=== PATIENT | male | born 1975 | race Two or more races ===

== ENCOUNTER 2020-07-11 19:19 | Inpatient (IN) | payer MEDICAID ==
[~2020-07-11] VITALS: Ht 167.6 cm; Wt 85.3 kg
--- NOTE | 2020-07-11 20:02 | Emergency Room Report ---
History of Present Illness General Chief Complaint: abdominal pain Source: Patient Present Illness HPI Patient is a 44-year-old male presents for increased abdominal discomfort and abdominal distention. Prior history of recent trauma to his forehead. Patient states he was accidentally struck by metal object 2 days ago. Reports having small injury to the left side of his forehead which subsequently became more swollen to the rest of his face. Reports having increased abdominal discomfort as well as nausea and vomiting. Some increased diarrheal stool with black stool. Patient reports drinking alcohol 2 days a week. Denies any fever. Allergies: Coded Allergies: No Known Allergies (Unverified , 07/11/20) Patient History Past Medical History: see triage record Reviewed Nursing Documentation: PMH: Agreed; PSxH: Agreed Review of Systems Gastrointestinal: Reports: abdominal pain, diarrhea Neurological: Reports: headache All Other Systems: negative except mentioned in HPI Physical Exam Sp02 EP Interpretation: reviewed, normal General Appearance: normal inspection, alert, GCS 15, moderate distress Head: atraumatic ENT: normal ENT inspection, hearing grossly normal, normal voice Neck: normal inspection, full range of motion, supple, no bony tend Respiratory: normal inspection, lungs clear, normal breath sounds, no respiratory distress, no retraction, no wheezing Cardiovascular #1: regular rate, rhythm, no edema Gastrointestinal: soft, no guarding, no hernia, distended Genitourinary: no CVA tenderness Musculoskeletal: normal inspection, back normal, normal range of motion Neurologic: alert, motor strength/tone normal, aerodynamic consultant III-XII nml as tested, oriented x3, responsive, speech normal, normal inspection Psychiatric: normal inspection, judgement/insight normal, mood/affect normal Medical Decision Making Diagnostic Impression: Primary Impression: Acute perforated appendicitis Additional Impressions: Facial contusion Dehydration Nasal fracture Hyperbilirubinemia ER Course Patient presents for increased abdominal pain. Additionally has recent head trauma. Differential diagnosis included was not limited to intracranial hemorrhage, skull fracture, GI bleed, gastroenteritis among others. Because of complexity of patient's case laboratory tests and imaging studies were ordered.Patient laboratory testing was normal for elevated white blood count as well as elevated bilirubin level. Liver function tests are otherwise normal. CT imaging read by radiology showed right lower abdominal free air as well as multiple areas of distended bowel with fluid. Per radiology reading patient has likely perforated appendicitis. He was started on pain medications as well as IV antibiotics. Patient was discussed with Dr. Joya for surgical consult Dr. Toth was contacted for inpatient management due to panel physician. Labs Test 07/11/20 20:09 White Blood Count 20.3 K/UL (4.8-10.8) Red Blood Count 5.63 M/UL (4.70-6.10) Hemoglobin 17.5 G/DL (14.2-18.0) Hematocrit 49.8 % (42.0-52.0) Mean Corpuscular Volume 88 FL (80-99) Mean Corpuscular Hemoglobin 31.1 PG (27.0-31.0) Mean Corpuscular Hemoglobin Concent 35.1 G/DL (32.0-36.0) Red Cell Distribution Width 12.6 % (11.6-14.8) Platelet Count 200 K/UL (150-450) Mean Platelet Volume 7.6 FL (6.5-10.1) Neutrophils (%) (Auto) % (45.0-75.0) Lymphocytes (%) (Auto) % (20.0-45.0) Monocytes (%) (Auto) % (1.0-10.0) Eosinophils (%) (Auto) % (0.0-3.0) Basophils (%) (Auto) % (0.0-2.0) Prothrombin Time 12.5 SEC (9.30-11.50) Prothromb Time International Ratio 1.1 (0.9-1.1) Activated Partial Thromboplast Time 30 SEC (23-33) Sodium Level 136 MMOL/L (136-145) Potassium Level 3.5 MMOL/L (3.5-5.1) Chloride Level 96 MMOL/L (98-107) Carbon Dioxide Level 25 MMOL/L (21-32) Anion Gap 15 mmol/L (5-15) Blood Urea Nitrogen 14 mg/dL (7-18) Creatinine 1.4 MG/DL (0.55-1.30) Estimat Glomerular Filtration Rate 55.3 mL/min (>60) Glucose Level 142 MG/DL (74-106) Calcium Level 9.0 MG/DL (8.5-10.1) Total Bilirubin 3.2 MG/DL (0.2-1.0) Direct Bilirubin 0.5 MG/DL (0.0-0.3) Aspartate Amino Transf (AST/SGOT) 19 U/L (15-37) Alanine Aminotransferase (ALT/SGPT) 33 U/L (12-78) Alkaline Phosphatase 88 U/L (46-116) Total Protein 8.7 G/DL (6.4-8.2) Albumin 3.7 G/DL (3.4-5.0) Globulin 5.0 g/dL Albumin/Globulin Ratio 0.7 (1.0-2.7) Lipase 55 U/L (73-393) Status: improved Disposition: ADMITTED INPATIENT Condition: Serious Scripts No Active Prescriptions or Reported Meds Khris Rosenberg MD Jul 11, 2020 20:02
[2020-07-11 20:19] VITALS: BP 141/109
--- NOTE | 2020-07-11 20:24 | NUR ---
ED Nurse Note: Pt brought back to ED via wheelchair. AAO x4. Pt speaks barbadian, sister present, and Nay from registration present to translate. Pt reports he was working x3 days ago and dropped something metal on his face. Pt has bilateral black eyes, pt denies LOC, reports he did not get seen by doctor. Pt reports nausea, vomiting, diarrhea x2 days with lower abdominal pain. Pt has been placed on monitor, IV started, blood and stool sent to lab.
[2020-07-11 20:36] LABS: HEMATOCRIT 49.8 % (42.0-52.0); HEMOGLOBIN 17.5 G/DL (14.2-18.0); MEAN CORPUSCULAR VOLUME 88 FL (80-99); PLATELET COUNT 200 K/UL (150-450); RED BLOOD COUNT 5.63 M/UL (4.70-6.10); RED CELL DISTRIBUTION WIDTH 12.6 % (11.6-14.8); WHITE BLOOD COUNT 20.3 K/UL (4.8-10.8)
[2020-07-11 20:44] LABS: CREATININE 1.4 MG/DL (0.55-1.30); POTASSIUM 3.5 MMOL/L (3.5-5.1)
--- NOTE | 2020-07-11 20:45 | NUR ---
ED Nurse Note: Pt to CT.
[2020-07-11 20:46] LABS: INR 1.1 (0.9-1.1)
[2020-07-11 20:55] LABS: ALBUMIN 3.7 G/DL (3.4-5.0); ALBUMIN/GLOBULIN RATIO 0.7 (1.0-2.7); BILIRUBIN,DIRECT 0.5 MG/DL (0.0-0.3); BILIRUBIN,TOTAL 3.2 MG/DL (0.2-1.0)
--- NOTE | 2020-07-11 21:05 | NUR ---
ED Nurse Note: Pt returned from CT. IV fluids started.
[2020-07-11 21:09] VITALS: BP 161/98
--- NOTE | 2020-07-11 21:10 | Diagnostic Imaging Report ---
EXAM: CT Head Without Intravenous Contrast CLINICAL HISTORY: ABD PAIN TECHNIQUE: Axial computed tomography images of the head/brain without intravenous contrast. CTDI is 68.7 mGy and DLP is 1388.5 mGy-cm. One or more of the following dose reduction techniques were used: automated exposure control, adjustment of the mA and/or kV according to patient size, use of iterative reconstruction technique. COMPARISON: No relevant prior studies available. FINDINGS: Brain: Unremarkable. No hemorrhage. No significant white matter disease. No edema. Ventricles: Unremarkable. No ventriculomegaly. Bones/joints: Unremarkable. No acute fracture. Soft tissues: Left frontal scalp and periorbital hematoma. Sinuses: Unremarkable as visualized. No acute sinusitis. Mastoid air cells: Unremarkable as visualized. No mastoid effusion. Orbits: Intact partly seen globes, unremarkable orbits. IMPRESSION: 1. No acute intracranial abnormality. 2. Left frontal scalp and periorbital hematoma. 3. Intact partly seen globes, unremarkable orbits.
--- NOTE | 2020-07-11 21:18 | Diagnostic Imaging Report ---
EXAM: CT Maxillofacial Without Intravenous Contrast CLINICAL HISTORY: ABD PAIN TECHNIQUE: Axial computed tomography images of the face without intravenous contrast. CTDI is 68.7 mGy and DLP is 1388.5 mGy-cm. One or more of the following dose reduction techniques were used: automated exposure control, adjustment of the mA and/or kV according to patient size, use of iterative reconstruction technique. Coronal reformatted images were created and reviewed. Axial reformatted images were created and reviewed. COMPARISON: No relevant prior studies available. FINDINGS: Bones/joints: Possible miniscule nasal bone fractures without significant displacement. Otherwise no acute osseous traumatic injury. Soft tissues: Left frontal scalp and left periorbital hematoma. Mild left facial soft tissue contusion. Orbits: Intact globes, unremarkable orbits. Sinuses: Unremarkable. No air-fluid levels. Brain: For intracranial findings, please see dedicated CT head report from the same date. IMPRESSION: 1. For intracranial findings, please see dedicated CT head report from the same date. 2. Possible miniscule nasal bone fractures without significant displacement. 3. Otherwise no acute osseous traumatic injury. 4. Left frontal scalp and left periorbital hematoma. 5. Intact globes, unremarkable orbits. 6. Mild left facial soft tissue contusion.
--- NOTE | 2020-07-11 21:30 | Diagnostic Imaging Report ---
EXAM: CT Abdomen and Pelvis With Intravenous Contrast CLINICAL HISTORY: ABD PAIN TECHNIQUE: Axial computed tomography images of the abdomen and pelvis with intravenous contrast. CTDI is 9.1 mGy and DLP is 507.7 mGy-cm. One or more of the following dose reduction techniques were used: automated exposure control, adjustment of the mA and/or kV according to patient size, use of iterative reconstruction technique. Coronal and sagittal reformatted images were created and reviewed. COMPARISON: No relevant prior studies available. FINDINGS: Lung bases: Unremarkable. No mass. No consolidation. Pleural space: Small thin left pleural calcifications could be due to prior exudative right pleural process. ABDOMEN: Liver: Unremarkable. No mass. Gallbladder and bile ducts: Unremarkable. No calcified stones. No ductal dilation. Pancreas: Unremarkable. No mass. No ductal dilation. Spleen: Unremarkable. No splenomegaly. Adrenals: Unremarkable. No mass. Kidneys and ureters: Unremarkable. No solid mass. No hydronephrosis. Stomach and bowel: Long segment distal ileum relative wall thickening and hyperenhancement with luminal caliber narrowing could be incidental or could represent infectious or inflammatory enteritis. Transverse colon wall thickening, most pronounced from the hepatic flexure to the mid transverse colon. Extensive liquid small and large bowel contents could be incidental or could be seen with enterocolitis. PELVIS: Appendix: Probable perforated acute appendicitis with scattered right lower quadrant free air, appendiceal thickening and periappendiceal stranding, and nonloculated. Small fluid collection. Appendix 1.1 cm diameter. Bladder: Unremarkable. No mass. Reproductive: Prostatomegaly 5.3 cm TV. ABDOMEN and PELVIS: Intraperitoneal space: See above. Bones/joints: No acute fracture. No dislocation. Soft tissues: Unremarkable. Vasculature: Atherosclerotic vascular disease. No abdominal aortic aneurysm. Lymph nodes: Unremarkable. No enlarged lymph nodes. IMPRESSION: 1. Probable perforated acute appendicitis with scattered right lower quadrant free air, appendiceal thickening and periappendiceal stranding, and nonloculated. Small fluid collection. 2. Recommend surgical consultation. 3. Multifocal segmental small and large bowel findings above could represent infectious or inflammatory enterocolitis. Given appearance, consider inflammatory bowel disease. 4. Small thin left pleural calcifications could be due to prior exudative right pleural process. 5. Prostatomegaly 5.3 cm TV. <MYCVCSECTION> Communications: 07/11/20 21:43 Call Doctor Regarding Appendicitis, called Chet JOY on 07/11 21:47 (-08:00)
[2020-07-11] MEDS ORDERED: Piperacillin/Tazobactam 3.375 GM in NS 110 ML IVPB ONE (21:45)
[2020-07-11] MEDS ORDERED: Morphine Sulfate 4mg/ml Inj (IV USE ONLY) IVP ONE ×2 (21:45→23:15)
[2020-07-11] MEDS: LR 1000ml 1,000 ML IV SCH (22:06)
[2020-07-11 22:22] VITALS: BP 129/89
--- NOTE | 2020-07-11 22:23 | NUR ---
ED Nurse Note: Pt is resting, warm blanket provided. No other needs identified at this time.
--- NOTE | 2020-07-11 23:05 | Diagnostic Imaging Report ---
EXAM: XR Chest, 1 View CLINICAL HISTORY: PREOP TECHNIQUE: Frontal view of the chest. COMPARISON: Same-day CT abdomen and pelvis FINDINGS: Lungs: Low lung volumes with bronchovascular crowding. Right base ill- defined lateral opacity probably represent atelectasis, correlate with presentation to exclude consolidation. Pleural space: Unremarkable. No pneumothorax. Heart: Prominent cardiac mediastinal silhouette, likely due at least in part to low lung volumes and portable technique. Mediastinum: See above. Bones/joints: No acute abnormality IMPRESSION: 1. Low lung volumes with bronchovascular crowding. 2. Right base ill-defined lateral opacity probably represent atelectasis, correlate with presentation to exclude consolidation. 3. Prominent cardiac mediastinal silhouette, likely due at least in part to low lung volumes and portable technique.
--- NOTE | 2020-07-11 23:24 | NUR ---
TRANSFER TO FLOOR: Patient transferred to [facility] as ordered, per Dr. Rosenberg. Report given to JB Willis. Belongings sent to floor with pt except wallet, gonzales and keys sent with pt's sister. This is documented on belongings inventory. Family informed of transfer.
[2020-07-12] VITALS: BP 148/100
[2020-07-12 04:00] VITALS: BP 153/95
[2020-07-12] MEDS: LR 1000ml 1,000 ML IV SCH (04:20)
--- NOTE | 2020-07-12 06:23 | NUR ---
NURSE HAND-OFF: Important Events on Shift: none since time of admission; awaiting admission orders from PMD Patient Status: asleep; stable at this time Diet: kept NPO; awaiting diet orders Pending Orders: waiting for orders Pending Results/Labs: waiting for orders Pending MD notification: Latest Vital Signs: Temperature 98.9 , Pulse 77 , B/P 153 /95 , Respiratory Rate 20 , O2 SAT 98 , Room Air, O2 Flow Rate . Vital Sign Comment:stable Latest Kennedy Fall Score: 45 Fall Risk: High Risk Safety Measures: Call light Within Reach, Bed Alarm Zone 3, Side Rails Side Rails x2, Bed position Low and Locked. Fall Precautions: Patient Fall Education Report will be given to JB Patrick.
--- NOTE | 2020-07-12 06:39 | NUR ---
NURSE'S NOTES: admitting orders received and entered. awaiting for code status, in-patient/observation and dvt prophylaxis orders.
[2020-07-12] MEDS ORDERED: Morphine Sulfate 2mg/ml Inj(IV/IM USE ONLY) IVP PRN (06:45)
--- NOTE | 2020-07-12 07:58 | NUR ---
NURSE NOTES: Received pt from JB Willis. pt was sleeping, no acute distress, call light w/in reach
[2020-07-12 08:00] VITALS: BP 146/74
[2020-07-12] MEDS: Piperacillin/Tazobactam 3.375 GM in NS 110 ML IVPB SCH ×3 (08:40→23:24)
--- NOTE | 2020-07-12 09:19 | NUR ---
CASE MANAGEMENT:REVIEW 44 YR OLD MALE WALKED INTO ER CC: ABDOMINAL PAIN,NAUSEA AND 40 EMESIS PMH: 2 BLACK EYES FROM METAL DROPPING ON FACE AT WORK 3 DAYS AGO SI:PROBABLE ACUTE PERFORATED APPENDICITIS NASAL FRACTURE. FACIAL CONTUSION 98.3 139 30 141/109 96% ON RA WBC+20.3 IS: 1L NS BOLUS IV ZOSYN IV MORPHINE OV ZOFRAN 1L LR X1 CHEST XRAY CT HEAD/FACIAL BONES/ABDOMEN NPO : TO MED/SURG 4 EAST PLAN: SURGICAL CONSULT
--- NOTE | 2020-07-12 10:12 | Consultation ---
History of Present Illness General Date patient seen: Jul 12, 2020 Reason for Hospitalization: Abdominal Pain Present Illness HPI 44-year-old male presents with 3 days abdominal pain nausea no emesis passing flatus having bowel movements. Identified to have leukocytosis and CT consi stent with perforated appendicitis no abscess. Surgery called to evaluate assist with care patient seen patient value chart reviewed. Allergies: Coded Allergies: No Known Allergies (Unverified , 07/11/20) COVID-19 Screening Contact w/high risk pt: No Experienced COVID-19 symptoms?: No Medication History No Active Prescriptions or Reported Meds Patient History History Provided By: Patient Healthcare decision maker Resuscitation status Advanced Directive on File Past Medical/Surgical History Past Medical/Surgical History: (1) Dehydration (2) Hyperbilirubinemia (3) Nasal fracture (4) Facial contusion (5) Acute perforated appendicitis Review of Systems Review of Symptoms General ROS: no weight loss or fever Psychological ROS: no depression or mood changes, no memory loss Ophthalmic ROS: no visual changes or eye irritation ENT ROS: no nasal congestion, hearing loss, dizziness Allergy and Immunology ROS: no allergic symptoms or urticaria Hematological and Lymphatic ROS: no swollen glands, unusual bleeding or bruising Endocrine ROS: no polyuria, polydipsia, weight changes, temperature intolerance Respiratory ROS: no cough, shortness of breath, or wheezing Cardiovascular ROS: no chest pain or dyspnea on exertion Gastrointestinal ROS: Positive abdominal pain, bright red blood in stool. Musculoskeletal ROS: no myalgias or arthralgias Neurological ROS: no TIA or stroke symptoms Dermatological ROS: no new or changing skin lesions, rashes or pruritis Physical Exam Physical Exam General appearance: alert, cooperative, no distress, appears stated age Head: Normocephalic, without obvious abnormality, atraumatic Eyes: conjunctivae/corneas clear. PERRL, EOM's intact. Fundi benign Throat: Lips, mucosa, and tongue normal. Teeth and gums normal Neck: supple, symmetrical, trachea midline, no adenopathy, thyroid: not enlarged, symmetric, no tenderness/mass/nodules, no carotid bruit and no JVD Lungs: clear to auscultation bilaterally Heart: regular rate and rhythm, S1, S2 normal, no murmur, click, rub or gallop Abdomen: soft, moderate right lower quadrant-tender. Bowel sounds normal. No masses, no organomegaly mild distention no peritonitis Extremities: extremities normal, atraumatic, no cyanosis or edema Pulses: 2+ and symmetric Skin: Skin color, texture, turgor normal. No rashes or lesions Neurologic: Grossly normal Last 24 Hour Vital Signs Date Time Temp Pulse Resp B/P (MAP) Pulse Ox O2 Delivery O2 Flow Rate FiO2 07/12/20 08:07 Room Air 07/12/20 04:00 98.9 77 20 153/95 (114) 98 07/12/20 00:00 97.9 104 22 148/100 (116) 92 07/11/20 23:30 Room Air 07/11/20 23:05 98.6 106 29 140/90 95 Room Air 07/11/20 22:22 98.6 111 26 129/89 95 Room Air 07/11/20 21:09 98.6 116 33 161/98 95 Room Air 07/11/20 20:19 119 36 Room Air 07/11/20 20:19 98.2 120 34 141/109 97 Room Air 07/11/20 19:56 98.2 139 30 141/109 (120) 96 Room Air Intake and Output 07/11/20 07/12/20 19:00 07:00 Intake Total 200.00 ml Output Total 400 ml Balance -200.00 ml Intake IV Total 200.00 ml Output Urine Total 400 ml Laboratory Tests Test 07/11/20 20:09 White Blood Count 20.3 K/UL (4.8-10.8) H Red Blood Count 5.63 M/UL (4.70-6.10) Hemoglobin 17.5 G/DL (14.2-18.0) Hematocrit 49.8 % (42.0-52.0) Mean Corpuscular Volume 88 FL (80-99) Mean Corpuscular Hemoglobin 31.1 PG (27.0-31.0) H Mean Corpuscular Hemoglobin Concent 35.1 G/DL (32.0-36.0) Red Cell Distribution Width 12.6 % (11.6-14.8) Platelet Count 200 K/UL (150-450) Mean Platelet Volume 7.6 FL (6.5-10.1) Neutrophils (%) (Auto) % (45.0-75.0) Lymphocytes (%) (Auto) % (20.0-45.0) Monocytes (%) (Auto) % (1.0-10.0) Eosinophils (%) (Auto) % (0.0-3.0) Basophils (%) (Auto) % (0.0-2.0) Differential Total Cells Counted 100 Neutrophils % (Manual) 75 % (45-75) Lymphocytes % (Manual) 9 % (20-45) L Monocytes % (Manual) 5 % (1-10) Eosinophils % (Manual) 0 % (0-3) Basophils % (Manual) 1 % (0-2) Band Neutrophils 10 % (0-8) H Platelet Estimate Adequate Platelet Morphology Normal Red Blood Cell Morphology Normal Prothrombin Time 12.5 SEC (9.30-11.50) H Prothromb Time International Ratio 1.1 (0.9-1.1) Activated Partial Thromboplast Time 30 SEC (23-33) Urine Color Pending Urine Appearance Pending Urine pH Pending Urine Specific [place] Pending Urine Protein Pending Urine Glucose (UA) Pending Urine Ketones Pending Urine Blood Pending Urine Nitrite Pending Urine Bilirubin Pending Urine Urobilinogen Pending Urine Leukocyte Esterase Pending Sodium Level 136 MMOL/L (136-145) Potassium Level 3.5 MMOL/L (3.5-5.1) Chloride Level 96 MMOL/L (98-107) L Carbon Dioxide Level 25 MMOL/L (21-32) Anion Gap 15 mmol/L (5-15) Blood Urea Nitrogen 14 mg/dL (7-18) Creatinine 1.4 MG/DL (0.55-1.30) H Estimat Glomerular Filtration Rate 55.3 mL/min (>60) Glucose Level 142 MG/DL (74-106) H Calcium Level 9.0 MG/DL (8.5-10.1) Total Bilirubin 3.2 MG/DL (0.2-1.0) H Direct Bilirubin 0.5 MG/DL (0.0-0.3) H Aspartate Amino Transf (AST/SGOT) 19 U/L (15-37) Alanine Aminotransferase (ALT/SGPT) 33 U/L (12-78) Alkaline Phosphatase 88 U/L (46-116) Total Protein 8.7 G/DL (6.4-8.2) H Albumin 3.7 G/DL (3.4-5.0) Globulin 5.0 g/dL Albumin/Globulin Ratio 0.7 (1.0-2.7) L Lipase 55 U/L (73-393) L Microbiology Date/Time Source Procedure Growth Status 07/11/20 22:04 Nasopharynx SARS-CoV-2 Antigen (Rapid)(BENITA) - Final Complete Height (Feet): 5 Height (Inches): 6.00 Weight (Pounds): 188 Medications Current Medications Medications (Trade) Dose Ordered Sig/Sveta Route PRN Reason Start Time Stop Time Status Last Admin Dose Admin Morphine Sulfate (Morphine Sulfate) 1 mg Q4H PRN IVP For Pain 07/12/20 06:45 07/19/20 06:44 07/12/20 08:38 Ondansetron HCl (Zofran) 4 mg Q6H PRN IVP Nausea & Vomiting 07/12/20 06:45 08/11/20 06:44 Piperacillin Sod/ Tazobactam Sod 3.375 gm/Sodium Chloride 110 ml @ 27.5 mls/hr Q8HR@0000,0800,1600 IVPB 07/12/20 08:00 07/19/20 07:59 07/12/20 08:40 Sodium Chloride 1,000 ml @ 100 mls/hr Q10H IV 07/12/20 07:00 08/11/20 06:59 07/12/20 08:40 Assessment/Plan Problem List: (1) Dehydration ICD Codes: E86.0 - Dehydration SNOMED: 29881427 (2) Hyperbilirubinemia ICD Codes: E80.6 - Other disorders of bilirubin metabolism SNOMED: 08418818 (3) Nasal fracture ICD Codes: S02.2XXA - Fracture of nasal bones, initial encounter for closed fracture SNOMED: 866766403 (4) Facial contusion ICD Codes: S00.83XA - Contusion of other part of head, initial encounter SNOMED: 604675054 (5) Acute perforated appendicitis Assessment & Plan: 44-year-old male acute perforated appendicitis no abscess. Some mild bubbles of free air likely from the perforation. Abdominal exam with right lower quadrant tenderness mild distention no peritonitis. Leukocytosis dehydration. Given above will initiate nonoperative medical management acute perforated appendicitis. If improving will continue with course. Otherwise will need to go to operating room for exploration. Long session had at the patient's bedside in regards to findings and care plan. Patient expressed understanding. N.p.o. IV fluids IV antibiotics trend labs we will follow with examination recommendations thank you for let me participate in patient's care ICD Codes: K35.32 - Acute appendicitis with perforation and localized peritonitis, without abscess SNOMED: 399602257 Celestine Joya Jul 12, 2020 10:12
[2020-07-12] MEDS ORDERED: Mylanta II UD 30ml ORAL PRN (10:15)
[2020-07-12] MEDS ORDERED: LORazepam 1mg tab ORAL PRN (10:15)
[2020-07-12 12:00] VITALS: BP 132/96
[2020-07-12] MEDS: Morphine Sulfate 2mg/ml Inj(IV/IM USE ONLY) IVP PRN (12:48)
[2020-07-12] MEDS ORDERED: LR 1000ml ONE (12:57)
[2020-07-12] MEDS: Morphine Sulfate 4mg/ml Inj (IV USE ONLY) IVP PRN ×2 (15:55→21:08)
[2020-07-12 16:00] VITALS: BP 134/92
--- NOTE | 2020-07-12 19:24 | NUR ---
NURSE HAND-OFF: Important Events on Shift:[N] Patient Status: [] Diet: [] Pending Orders: [] Pending Results/Labs:[] Pending MD notification:[] Latest Vital Signs: Temperature 97.9 , Pulse 107 , B/P 134 /92 , Respiratory Rate 18 , O2 SAT 90 , Room Air, O2 Flow Rate . Vital Sign Comment: [] Latest Kennedy Fall Score: 45 Fall Risk: High Risk Safety Measures: Call light Within Reach, Bed Alarm Zone 3, Side Rails Side Rails x2, Bed position Low and Locked. Fall Precautions: Patient Fall Education Report given to [JB Willis].
--- NOTE | 2020-07-12 19:57 | NUR ---
nurse's notes: received patient alert, oriented x 4. admits to 6/10 right quadrant abdominal pain but refused offer for pain medication. bilateral eyes with bruising; left eyebrow with scab; no s/s of infection. plan of care discussed with patient who verbalized agreement and understanding. will continue to monitor.
[2020-07-12 20:00] VITALS: BP 128/89
[2020-07-12] MEDS: Heparin 5000 units/ml inj SUBQ SCH (21:01)
[2020-07-13 00:01] VITALS: BP 123/96
[2020-07-13] MEDS: Morphine Sulfate 4mg/ml Inj (IV USE ONLY) IVP PRN (03:59)
[2020-07-13 04:00] VITALS: BP 128/94
--- NOTE | 2020-07-13 06:21 | NUR ---
NURSE HAND-OFF: Important Events on Shift: no significant changes noted this shift. pain managed well with ordered IV morphine with good results. tolerating IV abx; no adverse/side effects reported. no falls this shift. stool specimen sent for cultures and OB. bruises around the orbital area more director recreation in color. NPO continued as ordered. stable at this time. Patient Status: stable Diet: see order Pending Orders: see orders Pending Results/Labs: see orders Pending MD notification: see orders Latest Vital Signs: Temperature 98.6 , Pulse 103 , B/P 128 /94 , Respiratory Rate 20 , O2 SAT 97 , Room Air, O2 Flow Rate . Vital Sign Comment: see chart Latest Kennedy Fall Score: 45 Fall Risk: High Risk Safety Measures: Call light Within Reach, Bed Alarm Zone 3, Side Rails Side Rails x2, Bed position Low and Locked. Fall Precautions: Patient Fall Education Report will be given to JB Loyd [].
[2020-07-13 08:00] VITALS: BP 140/90
--- NOTE | 2020-07-13 08:00 | NUR ---
NURSE NOTES: received patient in bed, awake, alert, oriented x 4. Serbian speaking only, this nurse speaks Serbian. Patient is sub febrile and has bilateral eyes with bruising, provided cool wet cloth to mandaen cooling measures and eyes comfort; left eyebrow with scab; no s/s of infection. On room air, no respiratory discomfort noted. Bed locked and in the lowest position possible. Call light within easy reach. Side rails up x3. will continue to monitor patient and follow up with the plan of care.
[2020-07-13] MEDS: Piperacillin/Tazobactam 3.375 GM in NS 110 ML IVPB SCH ×3 (08:23→23:22)
[2020-07-13] MEDS: Heparin 5000 units/ml inj SUBQ SCH ×2 (08:25→21:16)
[2020-07-13 09:34] LABS: BASOPHILS % (AUTO) 0.3 % (0.0-2.0); EOSINOPHILS % (AUTO) 0.5 % (0.0-3.0); HEMATOCRIT 40.1 % (42.0-52.0); HEMOGLOBIN 13.7 G/DL (14.2-18.0); MEAN CORPUSCULAR VOLUME 89 FL (80-99); MONOCYTES % (AUTO) 5.9 % (1.0-10.0); NEUTROPHILS % (AUTO) 82.3 % (45.0-75.0); PLATELET COUNT 162 K/UL (150-450); RED BLOOD COUNT 4.49 M/UL (4.70-6.10); RED CELL DISTRIBUTION WIDTH 11.8 % (11.6-14.8); WHITE BLOOD COUNT 13.8 K/UL (4.8-10.8)
[2020-07-13 09:47] LABS: INR 0.9 (0.9-1.1)
[2020-07-13 10:10] LABS: ALANINE AMINOTRANSFERASE 16 U/L (12-78); ALBUMIN 2.5 G/DL (3.4-5.0); ALBUMIN/GLOBULIN RATIO 0.6 (1.0-2.7); ALKALINE PHOSPHATASE 87 U/L (46-116); AMYLASE 19 U/L (25-115); ANION GAP 9 mmol/L (5-15); ASPARTATE AMINO TRANSFERASE 14 U/L (15-37); BILIRUBIN,TOTAL 1.7 MG/DL (0.2-1.0); BLOOD UREA NITROGEN 12 mg/dL (7-18); CALCIUM 8.3 MG/DL (8.5-10.1); CARBON DIOXIDE 24 MMOL/L (21-32); CHLORIDE 106 MMOL/L (98-107); CREATININE 0.9 MG/DL (0.55-1.30); POTASSIUM 3.5 MMOL/L (3.5-5.1); SODIUM 139 MMOL/L (136-145)
[2020-07-13 10:13] LABS: BILIRUBIN,DIRECT 0.4 MG/DL (0.0-0.3)
[2020-07-13 12:00] VITALS: BP 140/86
--- NOTE | 2020-07-13 12:28 | Surgery Progress Note ---
Surgery Progress Note Subjective Symptoms: improved, voiding well, passing flatus, BM, pain decreased Objective Last 24 Hour Vital Signs Date Time Temp Pulse Resp B/P (MAP) Pulse Ox O2 Delivery O2 Flow Rate FiO2 07/13/20 12:00 99.3 84 18 140/86 (104) 97 07/13/20 09:00 Room Air 07/13/20 08:00 99.2 106 20 140/90 (107) 97 07/13/20 04:00 98.6 103 20 128/94 (105) 97 07/13/20 00:01 98.8 98 18 123/96 (105) 95 07/12/20 21:00 Room Air 07/12/20 20:00 98.8 96 18 128/89 (102) 98 07/12/20 16:00 97.9 107 18 134/92 (106) 90 I&O Intake and Output 07/12/20 07/13/20 19:00 07:00 Intake Total 100 ml 1210.00 ml Output Total 600 ml Balance -500 ml 1210.00 ml Intake IV Total 100 ml 1210.00 ml Output Urine Total 600 ml # Voids 2 # Bowel Movements 1 Cardiovascular: RSR Respiratory: clear Abdomen: soft, flat, tenderness - improved , present bowel sounds Extremities: no edema, no tenderness, no cyanosis Laboratory Tests Test 07/13/20 08:21 White Blood Count 13.8 K/UL (4.8-10.8) H Red Blood Count 4.49 M/UL (4.70-6.10) L Hemoglobin 13.7 G/DL (14.2-18.0) L Hematocrit 40.1 % (42.0-52.0) L Mean Corpuscular Volume 89 FL (80-99) Mean Corpuscular Hemoglobin 30.5 PG (27.0-31.0) Mean Corpuscular Hemoglobin Concent 34.1 G/DL (32.0-36.0) Red Cell Distribution Width 11.8 % (11.6-14.8) Platelet Count 162 K/UL (150-450) Mean Platelet Volume 7.8 FL (6.5-10.1) Neutrophils (%) (Auto) 82.3 % (45.0-75.0) H Lymphocytes (%) (Auto) 11.0 % (20.0-45.0) L Monocytes (%) (Auto) 5.9 % (1.0-10.0) Eosinophils (%) (Auto) 0.5 % (0.0-3.0) Basophils (%) (Auto) 0.3 % (0.0-2.0) Erythrocyte Sedimentation Rate 48 MM/HR (0-15) H Prothrombin Time 10.4 SEC (9.30-11.50) Prothromb Time International Ratio 0.9 (0.9-1.1) Activated Partial Thromboplast Time 35 SEC (23-33) H Sodium Level 139 MMOL/L (136-145) Potassium Level 3.5 MMOL/L (3.5-5.1) Chloride Level 106 MMOL/L (98-107) Carbon Dioxide Level 24 MMOL/L (21-32) Anion Gap 9 mmol/L (5-15) Blood Urea Nitrogen 12 mg/dL (7-18) Creatinine 0.9 MG/DL (0.55-1.30) Estimat Glomerular Filtration Rate > 60 mL/min (>60) Glucose Level 89 MG/DL (74-106) Calcium Level 8.3 MG/DL (8.5-10.1) L Total Bilirubin 1.7 MG/DL (0.2-1.0) H Direct Bilirubin 0.4 MG/DL (0.0-0.3) H Aspartate Amino Transf (AST/SGOT) 14 U/L (15-37) L Alanine Aminotransferase (ALT/SGPT) 16 U/L (12-78) Alkaline Phosphatase 87 U/L (46-116) C-Reactive Protein, Quantitative 43.5 mg/dL (0.00-0.90) H Total Protein 7.0 G/DL (6.4-8.2) Albumin 2.5 G/DL (3.4-5.0) L Globulin 4.5 g/dL Albumin/Globulin Ratio 0.6 (1.0-2.7) L Amylase Level 19 U/L (25-115) L Lipase 50 U/L (73-393) L Plan Problems: (1) Dehydration (2) Hyperbilirubinemia (3) Nasal fracture (4) Facial contusion (5) Acute perforated appendicitis Assessment & Plan: 44-year-old male acute perforated appendicitis no abscess. Some mild bubbles of free air likely from the perforation. Abdominal exam with right lower quadrant tenderness mild distention no peritonitis. Leukocytosis dehydration. Given above will initiate nonoperative medical management acute perforated appendicitis. If improving will continue with course. Otherwise will need to go to operating room for exploration. Long session had at the patient's bedside in regards to findings and care plan. Patient expressed understanding. N.p.o. IV fluids IV antibiotics trend labs we will follow with examination recommendations thank you for let me participate in patient's care improving with medical management npo iv fluids iv abx trend labs Celestine Joya Jul 13, 2020 12:28
[2020-07-13] MEDS ORDERED: NS 275ml ONE (14:24)
[2020-07-13] MEDS ORDERED: Tubing IV Secondary IV ONE (14:24)
[2020-07-13] MEDS: Morphine Sulfate 2mg/ml Inj(IV/IM USE ONLY) IVP PRN (15:57)
[2020-07-13 16:00] VITALS: BP 148/95
--- NOTE | 2020-07-13 19:07 | NUR ---
NURSE HAND-OFF: Important Events on Shift:[] Patient Status: [stable] Diet: [NPO] Pending Orders: [cbc, cmp] Pending Results/Labs:[] Pending MD notification:[] Latest Vital Signs: Temperature 99.3 , Pulse 93 , B/P 148 /95 , Respiratory Rate 18 , O2 SAT 94 , Room Air, O2 Flow Rate . Vital Sign Comment: [] Latest Kennedy Fall Score: 45 Fall Risk: High Risk Safety Measures: Call light Within Reach, Bed Alarm Zone 3, Side Rails Side Rails x2, Bed position Low and Locked. Fall Precautions: Patient Fall Education Report given to [JB Murry].
--- NOTE | 2020-07-13 19:13 | General Progress Note ---
Subjective Date patient seen: Jul 13, 2020 Constitutional: Reports: weakness HEENT: Reports: no symptoms Cardiovascular: Reports: no symptoms Respiratory: Reports: no symptoms Gastrointestinal/Abdominal: Reports: abdomen distended, abdominal pain Allergies: Coded Allergies: No Known Allergies (Unverified , 07/11/20) Subjective awake abdo pain Objective Last 24 Hour Vital Signs Date Time Temp Pulse Resp B/P (MAP) Pulse Ox O2 Delivery O2 Flow Rate FiO2 07/13/20 16:27 99.3 07/13/20 16:00 98.2 93 18 148/95 (112) 94 07/13/20 12:00 99.3 84 18 140/86 (104) 97 07/13/20 09:00 Room Air 07/13/20 08:00 99.2 106 20 140/90 (107) 97 07/13/20 04:00 98.6 103 20 128/94 (105) 97 07/13/20 00:01 98.8 98 18 123/96 (105) 95 07/12/20 21:00 Room Air 07/12/20 20:00 98.8 96 18 128/89 (102) 98 Intake and Output 07/12/20 07/13/20 19:00 07:00 Intake Total 100 ml 1210.00 ml Output Total 600 ml Balance -500 ml 1210.00 ml Intake IV Total 100 ml 1210.00 ml Output Urine Total 600 ml # Voids 2 # Bowel Movements 1 Laboratory Tests 07/13/20 04:30: Stool Occult Blood [Pending] 07/13/20 08:21: White Blood Count 13.8H, Red Blood Count 4.49L, Hemoglobin 13.7L, Hematocrit 40.1L, Mean Corpuscular Volume 89, Mean Corpuscular Hemoglobin 30.5, Mean Corpuscular Hemoglobin Concent 34.1, Red Cell Distribution Width 11.8, Platelet Count 162, Mean Platelet Volume 7.8, Neutrophils (%) (Auto) 82.3H, Lymphocytes (%) (Auto) 11.0L, Monocytes (%) (Auto) 5.9, Eosinophils (%) (Auto) 0.5, Basophils (%) (Auto) 0.3, Erythrocyte Sedimentation Rate 48H, Prothrombin Time 10.4, Prothromb Time International Ratio 0.9, Activated Partial Thromboplast Time 35H, Sodium Level 139, Potassium Level 3.5, Chloride Level 106, Carbon Dioxide Level 24, Anion Gap 9, Blood Urea Nitrogen 12, Creatinine 0.9, Estimat Glomerular Filtration Rate > 60, Glucose Level 89, Calcium Level 8.3L, Total Bilirubin 1.7H, Direct Bilirubin 0.4H, Aspartate Amino Transf (AST/SGOT) 14L, Alanine Aminotransferase (ALT/SGPT) 16, Alkaline Phosphatase 87, C-Reactive Protein, Quantitative 43.5H, Total Protein 7.0, Albumin 2.5L, Globulin 4.5, Albumin/Globulin Ratio 0.6L, Amylase Level 19L, Lipase 50L Height (Feet): 5 Height (Inches): 6.00 Weight (Pounds): 188 General Appearance: alert EENT: PERRL/EOMI Neck: supple Cardiovascular: normal rate Respiratory/Chest: lungs clear Abdomen: distended, guarding, tender Extremities: normal range of motion Assessment/Plan Assessment/Plan: ac appendticitis facial injury nose fracture npo iv abx wbc down cont ivfsurgery on the case Eulogio Toth MD Jul 13, 2020 19:13
--- NOTE | 2020-07-13 19:58 | NUR ---
nurse's notes: received patient awake, alert and oriented; still admits to some pain in the abdomen; c/o of being hungry; wants to eat; bruises around the orbital area getting better; dry scab on the left eyebrow; plan of care discussed with patient who verbalized understanding; will continue to monitor.
[2020-07-13 20:15] VITALS: BP 138/95
[2020-07-13] MEDS ORDERED: Acetaminophen 650 MG SUPP RECTAL PRN (21:15)
--- NOTE | 2020-07-13 23:58 | NUR ---
nurse's notes: patient forcibly severed iv tubing twice this admission; IVHL still intact and secured; bed linen changed as blood was all over patient's bed; refused to wear a hospital down and nasal cannula; O2 sats at 93% on RA; no SOBs noted. education given regarding iv lines and oxygenation in simple sentences; patient verbalized understanding. will continue to monitor.
[2020-07-14] VITALS: BP 131/91
[2020-07-14 04:00] VITALS: BP 148/90
--- NOTE | 2020-07-14 06:23 | NUR ---
nurse's notes: NURSE HAND-OFF: Important Events on Shift: no significant changes noted this shift. admitted to pain at the start of the shift but refused offer for pain medication; none given this shift. had 2 episodes of diarrhea; watery consistency; yellow in color; with particulates. refused again to wear hospital gown. noted low grade fevers; cooling measures done. continues to be npo. Patient Status: stable at this time; in no apparent distress Diet: npo Pending Orders:see orders Pending Results/Labs:see orders Pending MD notification:see orders Latest Vital Signs: Temperature 99.3 , Pulse 87 , B/P 148 /90 , Respiratory Rate 20 , O2 SAT 96 , Room Air, O2 Flow Rate . Vital Sign Comment: see above Latest Kennedy Fall Score: 45 Fall Risk: High Risk Safety Measures: Call light Within Reach, Bed Alarm Zone 3, Side Rails Side Rails x2, Bed position Low and Locked. Fall Precautions: Patient Fall Education Report Will be given to JB Correia.
[2020-07-14 07:19] LABS: BASOPHILS % (AUTO) 0.5 % (0.0-2.0); EOSINOPHILS % (AUTO) 0.5 % (0.0-3.0); HEMATOCRIT 39.2 % (42.0-52.0); HEMOGLOBIN 13.7 G/DL (14.2-18.0); LYMPHOCYTES % (AUTO) 10.1 % (20.0-45.0); MEAN CORPUSCULAR VOLUME 88 FL (80-99); MONOCYTES % (AUTO) 8.3 % (1.0-10.0); NEUTROPHILS % (AUTO) 80.6 % (45.0-75.0); PLATELET COUNT 202 K/UL (150-450); RED BLOOD COUNT 4.45 M/UL (4.70-6.10); RED CELL DISTRIBUTION WIDTH 11.4 % (11.6-14.8); WHITE BLOOD COUNT 10.6 K/UL (4.8-10.8)
[2020-07-14 07:35] LABS: ALANINE AMINOTRANSFERASE 16 U/L (12-78); ALBUMIN 2.5 G/DL (3.4-5.0); ALBUMIN/GLOBULIN RATIO 0.5 (1.0-2.7); ALKALINE PHOSPHATASE 73 U/L (46-116); ANION GAP 12 mmol/L (5-15); ASPARTATE AMINO TRANSFERASE 14 U/L (15-37); BILIRUBIN,TOTAL 1.3 MG/DL (0.2-1.0); BLOOD UREA NITROGEN 10 mg/dL (7-18); CALCIUM 8.8 MG/DL (8.5-10.1); CARBON DIOXIDE 22 MMOL/L (21-32); CHLORIDE 106 MMOL/L (98-107); CREATININE 0.8 MG/DL (0.55-1.30); POTASSIUM 3.6 MMOL/L (3.5-5.1); SODIUM 140 MMOL/L (136-145)
[2020-07-14 07:36] LABS: BILIRUBIN,DIRECT 0.3 MG/DL (0.0-0.3)
--- NOTE | 2020-07-14 07:59 | NUR ---
NURSE NOTES: received patient in bed, awake, alert, oriented x 4. South African speaking only, this nurse speaks [place] African. Patient has bilateral eyes with bruising. On room air, no respiratory discomfort noted, sat > 93%. LFA G20 runnig IVF, no sign of infiltration or leakage. Bed locked and in the lowest position possible. Call light within easy reach. Side rails up x3. will continue to monitor patient and follow up with the plan of care.
[2020-07-14 08:00] VITALS: BP 160/106
[2020-07-14] MEDS: Heparin 5000 units/ml inj SUBQ SCH ×2 (08:32→21:16)
[2020-07-14] MEDS: Piperacillin/Tazobactam 3.375 GM in NS 110 ML IVPB SCH ×3 (09:36→23:54)
--- NOTE | 2020-07-14 09:47 | Surgery Progress Note ---
Surgery Progress Note Subjective Additional Comments afebrile, HD stable comfortable pain improved but still present no n/v/f/c +flatus +bm wbc resolved labs improved Objective Last 24 Hour Vital Signs Date Time Temp Pulse Resp B/P (MAP) Pulse Ox O2 Delivery O2 Flow Rate FiO2 07/14/20 04:00 99.3 87 20 148/90 (109) 96 07/14/20 00:00 99.2 93 20 131/91 (104) 93 07/13/20 21:00 Room Air 07/13/20 20:15 100.7 94 18 138/95 (109) 94 07/13/20 16:27 99.3 07/13/20 16:00 98.2 93 18 148/95 (112) 94 07/13/20 12:00 99.3 84 18 140/86 (104) 97 I&O Intake and Output 07/13/20 07/14/20 19:00 07:00 Intake Total 100 ml 1110.0 ml Balance 100 ml 1110.0 ml Intake IV Total 100 ml 1110.0 ml # Voids 4 3 # Bowel Movements 2 Cardiovascular: RSR Respiratory: clear Abdomen: soft, distended, tenderness - improved, present bowel sounds Extremities: no edema, no tenderness, no cyanosis Laboratory Tests Test 07/14/20 06:00 White Blood Count 10.6 K/UL (4.8-10.8) Red Blood Count 4.45 M/UL (4.70-6.10) L Hemoglobin 13.7 G/DL (14.2-18.0) L Hematocrit 39.2 % (42.0-52.0) L Mean Corpuscular Volume 88 FL (80-99) Mean Corpuscular Hemoglobin 30.8 PG (27.0-31.0) Mean Corpuscular Hemoglobin Concent 35.0 G/DL (32.0-36.0) Red Cell Distribution Width 11.4 % (11.6-14.8) L Platelet Count 202 K/UL (150-450) Mean Platelet Volume 7.9 FL (6.5-10.1) Neutrophils (%) (Auto) 80.6 % (45.0-75.0) H Lymphocytes (%) (Auto) 10.1 % (20.0-45.0) L Monocytes (%) (Auto) 8.3 % (1.0-10.0) Eosinophils (%) (Auto) 0.5 % (0.0-3.0) Basophils (%) (Auto) 0.5 % (0.0-2.0) Sodium Level 140 MMOL/L (136-145) Potassium Level 3.6 MMOL/L (3.5-5.1) Chloride Level 106 MMOL/L (98-107) Carbon Dioxide Level 22 MMOL/L (21-32) Anion Gap 12 mmol/L (5-15) Blood Urea Nitrogen 10 mg/dL (7-18) Creatinine 0.8 MG/DL (0.55-1.30) Estimat Glomerular Filtration Rate > 60 mL/min (>60) Glucose Level 108 MG/DL (74-106) H Calcium Level 8.8 MG/DL (8.5-10.1) Total Bilirubin 1.3 MG/DL (0.2-1.0) H Direct Bilirubin 0.3 MG/DL (0.0-0.3) Aspartate Amino Transf (AST/SGOT) 14 U/L (15-37) L Alanine Aminotransferase (ALT/SGPT) 16 U/L (12-78) Alkaline Phosphatase 73 U/L (46-116) Total Protein 7.3 G/DL (6.4-8.2) Albumin 2.5 G/DL (3.4-5.0) L Globulin 4.8 g/dL Albumin/Globulin Ratio 0.5 (1.0-2.7) L Plan Problems: (1) Dehydration (2) Hyperbilirubinemia (3) Nasal fracture (4) Facial contusion (5) Acute perforated appendicitis Assessment & Plan: 44-year-old male acute perforated appendicitis no abscess. Some mild bubbles of free air likely from the perforation. Abdominal exam with right lower quadrant tenderness mild distention no peritonitis. Leukocytosis dehydration. Given above will initiate nonoperative medical management acute perforated appendicitis. If improving will continue with course. Otherwise will need to go to operating room for exploration. Long session had at the patient's bedside in regards to findings and care plan. Patient expressed understanding. N.p.o. IV fluids IV antibiotics trend labs we will follow with examination recommendations thank you for let me participate in patient's care improving with medical management npo iv fluids iv abx trend labs afebrile, HD stable comfortable pain improved but still present no n/v/f/c +flatus +bm wbc resolved labs improved start clear liquid diet trail cont abx as pain improves and clinically improves will plan for transition to oral abx for dc Celestine Joya Jul 14, 2020 09:47
[2020-07-14 12:00] VITALS: BP 158/106
[2020-07-14 16:00] VITALS: BP 145/103
--- NOTE | 2020-07-14 16:35 | General Progress Note ---
Subjective Allergies: Coded Allergies: No Known Allergies (Unverified , 07/11/20) Subjective awake abdo pain clear liquid diet Objective Last 24 Hour Vital Signs Date Time Temp Pulse Resp B/P (MAP) Pulse Ox O2 Delivery O2 Flow Rate FiO2 07/14/20 16:00 98.7 77 18 145/103 (117) 95 07/14/20 12:00 98.4 82 20 158/106 (123) 96 07/14/20 09:00 Room Air 07/14/20 08:00 98.0 78 19 160/106 (124) 96 07/14/20 04:00 99.3 87 20 148/90 (109) 96 07/14/20 00:00 99.2 93 20 131/91 (104) 93 07/13/20 21:00 Room Air 07/13/20 20:15 100.7 94 18 138/95 (109) 94 Intake and Output 07/13/20 07/14/20 19:00 07:00 Intake Total 100 ml 1110.0 ml Balance 100 ml 1110.0 ml Intake IV Total 100 ml 1110.0 ml # Voids 4 3 # Bowel Movements 2 Laboratory Tests 07/14/20 06:00: White Blood Count 10.6, Red Blood Count 4.45L, Hemoglobin 13.7L, Hematocrit 39.2L, Mean Corpuscular Volume 88, Mean Corpuscular Hemoglobin 30.8, Mean Corpuscular Hemoglobin Concent 35.0, Red Cell Distribution Width 11.4L, Platelet Count 202, Mean Platelet Volume 7.9, Neutrophils (%) (Auto) 80.6H, Lymphocytes (%) (Auto) 10.1L, Monocytes (%) (Auto) 8.3, Eosinophils (%) (Auto) 0.5, Basophils (%) (Auto) 0.5, Sodium Level 140, Potassium Level 3.6, Chloride Level 106, Carbon Dioxide Level 22, Anion Gap 12, Blood Urea Nitrogen 10, Creatinine 0.8, Estimat Glomerular Filtration Rate > 60, Glucose Level 108H, Calcium Level 8.8, Total Bilirubin 1.3H, Direct Bilirubin 0.3, Aspartate Amino Transf (AST/SGOT) 14L, Alanine Aminotransferase (ALT/SGPT) 16, Alkaline Phosphatase 73, Total Protein 7.3, Albumin 2.5L, Globulin 4.8, Albumin/Globulin Ratio 0.5L Height (Feet): 5 Height (Inches): 6.00 Weight (Pounds): 188 General Appearance: alert EENT: PERRL/EOMI Neck: supple Cardiovascular: regular rhythm Respiratory/Chest: lungs clear Abdomen: distended, tender Assessment/Plan Assessment/Plan: ac appendticitis facial injury nose fracture clear liquid diet conserative tx iv abx wbc down cont ivfsurgery on the case Eulogio Toth MD Jul 14, 2020 16:35
--- NOTE | 2020-07-14 19:44 | NUR ---
NURSE HAND-OFF: Important Events on Shift:[] Patient Status: [] Diet: [clear liquid] Pending Orders: [] Pending Results/Labs:[] Pending MD notification:[] Latest Vital Signs: Temperature 98.7 , Pulse 77 , B/P 145 /103 , Respiratory Rate 18 , O2 SAT 95 , Room Air, O2 Flow Rate . Vital Sign Comment: [] Latest Kennedy Fall Score: 45 Fall Risk: High Risk Safety Measures: Call light Within Reach, Bed Alarm Zone 3, Side Rails Side Rails x2, Bed position Low and Locked. Fall Precautions: Patient Fall Education Report given to [JB Li].
--- NOTE | 2020-07-14 20:00 | NUR ---
NURSE NOTES: Received patient comfortably sleeping without complaints.
[2020-07-14 20:26] VITALS: BP 155/101
[2020-07-15 04:13] VITALS: BP 146/96
--- NOTE | 2020-07-15 07:10 | NUR ---
NURSE NOTES: received patient in bed,asleep no sign of distress, IVF on going,noted bilateral eyes with bruising, Bed locked and in the lowest position possible. Call light within easy reach. Side rails up x3. will continue to monitor patient and follow up with the plan of care. killian nicole
--- NOTE | 2020-07-15 07:16 | NUR ---
NURSE HAND-OFF: Important Events on Shift:[]Unremarkable Patient Status: [] Diet: []Clear liquid Pending Orders: [] Pending Results/Labs:[] Pending MD notification:[] Latest Vital Signs: Temperature 98.6 , Pulse 90 , B/P 146 /96 , Respiratory Rate 20 , O2 SAT 95 , Room Air, O2 Flow Rate . Vital Sign Comment: [] Latest Kennedy Fall Score: 45 Fall Risk: High Risk Safety Measures: Call light Within Reach, Bed Alarm Zone 3, Side Rails Side Rails x2, Bed position Low and Locked. Fall Precautions: Patient Fall Education Report given to [].
[2020-07-15 08:00] VITALS: BP 143/88
[2020-07-15] MEDS: Piperacillin/Tazobactam 3.375 GM in NS 110 ML IVPB SCH ×3 (08:09→23:57)
[2020-07-15] MEDS: Heparin 5000 units/ml inj SUBQ SCH ×2 (08:10→20:19)
--- NOTE | 2020-07-15 08:40 | NUR ---
RADIOLOGY DEPT., ABDOMEN X-RAY COMPLETED.-P.DYE
--- NOTE | 2020-07-15 09:49 | Surgery Progress Note ---
Surgery Progress Note Subjective Additional Comments afebrile, HD stable labs pending pain improved no n/v tolerating diet +bowel function Objective Last 24 Hour Vital Signs Date Time Temp Pulse Resp B/P (MAP) Pulse Ox O2 Delivery O2 Flow Rate FiO2 07/15/20 08:00 Room Air 07/15/20 08:00 98.2 88 143/88 (106) 07/15/20 04:13 98.6 90 146/96 (113) 07/14/20 21:43 Room Air 07/14/20 20:26 99.0 86 20 155/101 (119) 95 07/14/20 16:00 98.7 77 18 145/103 (117) 95 07/14/20 12:00 98.4 82 20 158/106 (123) 96 I&O Intake and Output 07/14/20 07/15/20 19:00 07:00 Intake Total 600 ml 1360.0 ml Balance 600 ml 1360.0 ml Intake Oral 400 ml IV Total 100 ml 960.0 ml Other 500 ml # Voids 3 Cardiovascular: RSR Respiratory: clear Abdomen: soft, distended - minimal , tenderness - minimal , present bowel sounds Extremities: no edema, no tenderness, no cyanosis Plan Problems: (1) Dehydration (2) Hyperbilirubinemia (3) Nasal fracture (4) Facial contusion (5) Acute perforated appendicitis Assessment & Plan: 44-year-old male acute perforated appendicitis no abscess. Some mild bubbles of free air likely from the perforation. Abdominal exam with right lower quadrant tenderness mild distention no peritonitis. Leukocytosis dehydration. Given above will initiate nonoperative medical management acute perforated appendicitis. If improving will continue with course. Otherwise will need to go to operating room for exploration. Long session had at the patient's bedside in regards to findings and care plan. Patient expressed understanding. N.p.o. IV fluids IV antibiotics trend labs we will follow with examination recommendations thank you for let me participate in patient's care improving with medical management npo iv fluids iv abx trend labs afebrile, HD stable comfortable pain improved but still present no n/v/f/c +flatus +bm wbc resolved labs improved start clear liquid diet trail cont abx as pain improves and clinically improves will plan for transition to oral abx for dc Celestine Joya Jul 15, 2020 09:49
[2020-07-15 10:13] LABS: BASOPHILS % (AUTO) 1.2 % (0.0-2.0); EOSINOPHILS % (AUTO) 0.9 % (0.0-3.0); HEMATOCRIT 40.9 % (42.0-52.0); HEMOGLOBIN 14.2 G/DL (14.2-18.0); LYMPHOCYTES % (AUTO) 12.7 % (20.0-45.0); MEAN CORPUSCULAR VOLUME 87 FL (80-99); MONOCYTES % (AUTO) 10.9 % (1.0-10.0); NEUTROPHILS % (AUTO) 74.3 % (45.0-75.0); PLATELET COUNT 238 K/UL (150-450); RED CELL DISTRIBUTION WIDTH 11.3 % (11.6-14.8); WHITE BLOOD COUNT 10.7 K/UL (4.8-10.8)
[2020-07-15 10:41] LABS: ALANINE AMINOTRANSFERASE 20 U/L (12-78); ALBUMIN 2.5 G/DL (3.4-5.0); ALBUMIN/GLOBULIN RATIO 0.5 (1.0-2.7); ALKALINE PHOSPHATASE 62 U/L (46-116); ANION GAP 11 mmol/L (5-15); ASPARTATE AMINO TRANSFERASE 16 U/L (15-37); BLOOD UREA NITROGEN 10 mg/dL (7-18); CALCIUM 8.9 MG/DL (8.5-10.1); CARBON DIOXIDE 23 MMOL/L (21-32); CHLORIDE 105 MMOL/L (98-107); CREATININE 0.6 MG/DL (0.55-1.30); POTASSIUM 3.4 MMOL/L (3.5-5.1); SODIUM 139 MMOL/L (136-145)
--- NOTE | 2020-07-15 11:30 | General Progress Note ---
Subjective Allergies: Coded Allergies: No Known Allergies (Unverified , 07/11/20) Subjective awake abdo pain regular diet Objective Last 24 Hour Vital Signs Date Time Temp Pulse Resp B/P (MAP) Pulse Ox O2 Delivery O2 Flow Rate FiO2 07/15/20 08:00 Room Air 07/15/20 08:00 98.2 88 143/88 (106) 07/15/20 04:13 98.6 90 146/96 (113) 07/14/20 21:43 Room Air 07/14/20 20:26 99.0 86 20 155/101 (119) 95 07/14/20 16:00 98.7 77 18 145/103 (117) 95 07/14/20 12:00 98.4 82 20 158/106 (123) 96 Intake and Output 07/14/20 07/15/20 19:00 07:00 Intake Total 600 ml 1360.0 ml Balance 600 ml 1360.0 ml Intake Oral 400 ml IV Total 100 ml 960.0 ml Other 500 ml # Voids 3 Laboratory Tests 07/15/20 09:50: White Blood Count 10.7, Red Blood Count 4.70, Hemoglobin 14.2, Hematocrit 40.9L, Mean Corpuscular Volume 87, Mean Corpuscular Hemoglobin 30.3, Mean Corpuscular Hemoglobin Concent 34.8, Red Cell Distribution Width 11.3L, Platelet Count 238, Mean Platelet Volume 7.1, Neutrophils (%) (Auto) 74.3, Lymphocytes (%) (Auto) 12.7L, Monocytes (%) (Auto) 10.9H, Eosinophils (%) (Auto) 0.9, Basophils (%) (Auto) 1.2, Sodium Level 139, Potassium Level 3.4L, Chloride Level 105, Carbon Dioxide Level 23, Anion Gap 11, Blood Urea Nitrogen 10, Creatinine 0.6, Estimat Glomerular Filtration Rate > 60, Glucose Level 101, Calcium Level 8.9, Total Bilirubin 1.0, Aspartate Amino Transf (AST/SGOT) 16, Alanine Aminotransferase (ALT/SGPT) 20, Alkaline Phosphatase 62, Total Protein 7.4, Albumin 2.5L, Globulin 4.9, Albumin/Globulin Ratio 0.5L Height (Feet): 5 Height (Inches): 6.00 Weight (Pounds): 188 Assessment/Plan Assessment/Plan: ac appendticitis facial injury nose fracture clear liquid diet conserative tx iv abx wbc down cont ivfsurgery on the case Eulogio Toth MD Jul 15, 2020 11:30
--- NOTE | 2020-07-15 11:37 | General Progress Note ---
Subjective Allergies: Coded Allergies: No Known Allergies (Unverified , 07/11/20) Subjective awake abdo pain regular diet Objective Last 24 Hour Vital Signs Date Time Temp Pulse Resp B/P (MAP) Pulse Ox O2 Delivery O2 Flow Rate FiO2 07/15/20 08:00 Room Air 07/15/20 08:00 98.2 88 143/88 (106) 07/15/20 04:13 98.6 90 146/96 (113) 07/14/20 21:43 Room Air 07/14/20 20:26 99.0 86 20 155/101 (119) 95 07/14/20 16:00 98.7 77 18 145/103 (117) 95 07/14/20 12:00 98.4 82 20 158/106 (123) 96 Intake and Output 07/14/20 07/15/20 19:00 07:00 Intake Total 600 ml 1360.0 ml Balance 600 ml 1360.0 ml Intake Oral 400 ml IV Total 100 ml 960.0 ml Other 500 ml # Voids 3 Laboratory Tests 07/15/20 09:50: White Blood Count 10.7, Red Blood Count 4.70, Hemoglobin 14.2, Hematocrit 40.9L, Mean Corpuscular Volume 87, Mean Corpuscular Hemoglobin 30.3, Mean Corpuscular Hemoglobin Concent 34.8, Red Cell Distribution Width 11.3L, Platelet Count 238, Mean Platelet Volume 7.1, Neutrophils (%) (Auto) 74.3, Lymphocytes (%) (Auto) 12.7L, Monocytes (%) (Auto) 10.9H, Eosinophils (%) (Auto) 0.9, Basophils (%) (Auto) 1.2, Sodium Level 139, Potassium Level 3.4L, Chloride Level 105, Carbon Dioxide Level 23, Anion Gap 11, Blood Urea Nitrogen 10, Creatinine 0.6, Estimat Glomerular Filtration Rate > 60, Glucose Level 101, Calcium Level 8.9, Total Bilirubin 1.0, Aspartate Amino Transf (AST/SGOT) 16, Alanine Aminotransferase (ALT/SGPT) 20, Alkaline Phosphatase 62, Total Protein 7.4, Albumin 2.5L, Globulin 4.9, Albumin/Globulin Ratio 0.5L Height (Feet): 5 Height (Inches): 6.00 Weight (Pounds): 188 General Appearance: alert EENT: PERRL/EOMI Neck: supple Cardiovascular: regular rhythm Respiratory/Chest: lungs clear Abdomen: soft, tender Assessment/Plan Assessment/Plan: ac appendticitis facial injury nose fracture regular diet liquid diet conserative tx iv abx wbc down dw surgery on the case Eulogio Toth MD Jul 15, 2020 11:37
[2020-07-15 12:00] VITALS: BP 120/63
--- NOTE | 2020-07-15 14:15 | Diagnostic Imaging Report ---
EXAM: XRAY Abdomen 1v HISTORY: Reason For Exam: ABD PAIN COMPARISON: None. TECHNIQUE: 2 view of the abdomen obtained. FINDINGS: Gaseous distention of small bowel loops noted in the central abdomen. There are scattered air lucencies in the colon. There is no mass or mass effect noted. No definite pathologic calcifications identified. There is no sign of free air. No acute abnormality noted of the visualized osseous structures. IMPRESSION: CENTRAL ABDOMEN GASEOUS DISTENTION OF SMALL BOWEL WITH COLONIC AIR NOTED. THIS MAY BE AN EARLY PARTIAL OBSTRUCTION OR SMALL BOWEL ILEUS. RECOMMEND FOLLOW-UP.
[2020-07-15] MEDS: Morphine Sulfate 2mg/ml Inj(IV/IM USE ONLY) IVP PRN (15:09)
[2020-07-15 16:00] VITALS: BP 119/73
--- NOTE | 2020-07-15 17:44 | Cardiology Report ---
APPROVED REPORT EKG Measurement Heart [id number] <Conclusion> Sinus tachycardia Inferior infarct, age undetermined Abnormal ECG
--- NOTE | 2020-07-15 19:55 | NUR ---
NURSE NOTES: Received patient comfortably sleeping without complaints.
[2020-07-15 19:56] VITALS: BP 138/76
--- NOTE | 2020-07-15 20:01 | NUR ---
nurse notes endorsed to Ashely MUHAMMAD for continuity of care killian nicole
[2020-07-15] MEDS: Morphine Sulfate 4mg/ml Inj (IV USE ONLY) IVP PRN (20:20)
[2020-07-16 03:53] VITALS: BP 140/84
--- NOTE | 2020-07-16 06:18 | NUR ---
NURSE HAND-OFF: Important Events on Shift:[]Unremarkable Patient Status: [] Diet: [] Pending Orders: [] Pending Results/Labs:[] Pending MD notification:[] Latest Vital Signs: Temperature 97.8 , Pulse 78 , B/P 140 /84 , Respiratory Rate 18 , O2 SAT 98 , Room Air, O2 Flow Rate . Vital Sign Comment: [] Latest Kennedy Fall Score: 45 Fall Risk: High Risk Safety Measures: Call light Within Reach, Bed Alarm Zone 3, Side Rails Side Rails x2, Bed position Low and Locked. Fall Precautions: Patient Fall Education Report given to [].
[2020-07-16 07:13] LABS: ANION GAP 12 mmol/L (5-15); BLOOD UREA NITROGEN 12 mg/dL (7-18); CALCIUM 9.1 MG/DL (8.5-10.1); CARBON DIOXIDE 24 MMOL/L (21-32); CHLORIDE 102 MMOL/L (98-107); CREATININE 0.9 MG/DL (0.55-1.30); POTASSIUM 3.2 MMOL/L (3.5-5.1); SODIUM 138 MMOL/L (136-145)
[2020-07-16 07:20] LABS: BASOPHILS % (AUTO) 0.7 % (0.0-2.0); EOSINOPHILS % (AUTO) 1.5 % (0.0-3.0); HEMATOCRIT 40.7 % (42.0-52.0); HEMOGLOBIN 14.4 G/DL (14.2-18.0); LYMPHOCYTES % (AUTO) 14.5 % (20.0-45.0); MEAN CORPUSCULAR VOLUME 87 FL (80-99); MONOCYTES % (AUTO) 12.8 % (1.0-10.0); NEUTROPHILS % (AUTO) 70.6 % (45.0-75.0); PLATELET COUNT 263 K/UL (150-450); RED BLOOD COUNT 4.68 M/UL (4.70-6.10); RED CELL DISTRIBUTION WIDTH 11.3 % (11.6-14.8)
--- NOTE | 2020-07-16 07:46 | NUR ---
NURSE NOTES: Patient alert x4; Georgian speaking; on room air, no sing of distress and shortness of breath; no sing of chest pain; IV Left-Hand fluid running; Facial injury around both eyes noted; side rails up x2, breaks engaged, bed at lowest position; call light within reach; will keep monitoring.
[2020-07-16 08:00] VITALS: BP 138/84
--- NOTE | 2020-07-16 09:54 | General Progress Note ---
Subjective Allergies: Coded Allergies: No Known Allergies (Unverified , 07/11/20) Subjective awake abdo pain regular diet abdo pain improving Objective Last 24 Hour Vital Signs Date Time Temp Pulse Resp B/P (MAP) Pulse Ox O2 Delivery O2 Flow Rate FiO2 07/16/20 08:00 97.9 82 20 138/84 (102) 98 07/16/20 03:53 97.8 78 140/84 (102) 07/15/20 21:00 Room Air 07/15/20 20:59 98.3 07/15/20 19:56 98.3 86 138/76 (96) 07/15/20 16:00 96.7 79 18 119/73 (88) 98 07/15/20 12:00 98.0 76 18 120/63 (82) 98 Intake and Output 07/15/20 07/16/20 19:00 07:00 Intake Total 1070.0 ml 1170.0 ml Balance 1070.0 ml 1170.0 ml Intake Oral 500 ml 760 ml IV Total 570.0 ml 410.0 ml # Voids 3 4 Laboratory Tests 07/16/20 05:26: White Blood Count 12.0H, Red Blood Count 4.68L, Hemoglobin 14.4, Hematocrit 40.7L, Mean Corpuscular Volume 87, Mean Corpuscular Hemoglobin 30.7, Mean Corpuscular Hemoglobin Concent 35.4, Red Cell Distribution Width 11.3L, Platelet Count 263, Mean Platelet Volume 7.2, Neutrophils (%) (Auto) 70.6, Lymphocytes (%) (Auto) 14.5L, Monocytes (%) (Auto) 12.8H, Eosinophils (%) (Auto) 1.5, Basophils (%) (Auto) 0.7, Sodium Level 138, Potassium Level 3.2L, Chloride Level 102, Carbon Dioxide Level 24, Anion Gap 12, Blood Urea Nitrogen 12, Creatinine 0.9, Estimat Glomerular Filtration Rate > 60, Glucose Level 91, Calcium Level 9.1 Height (Feet): 5 Height (Inches): 6.00 Weight (Pounds): 188 General Appearance: alert EENT: PERRL/EOMI Neck: supple Cardiovascular: regular rhythm Respiratory/Chest: normal breath sounds Abdomen: soft, tender Extremities: non-tender Assessment/Plan Assessment/Plan: ac appendticitis with perforation , clinically imroving with medical tx, no surgery at this point by surgery facial injury nose fracture regular diet liquid diet conserative tx iv abx wbc down dw surgery on the case Eulogio Toth MD Jul 16, 2020 09:54
--- NOTE | 2020-07-16 09:59 | History and Physical Report ---
DATE OF ADMISSION: 07/11/2020 HISTORY OF PRESENT ILLNESS: This is a 44-year-old male who came to the emergency room for dehydration, hyperbilirubinemia, nasal fracture, facial contusion, acute perforated appendicitis. The patient is currently tender, having nausea, vomiting for 2 days and abdominal pain, unable to eat any food, also complaining of low-grade fever. PAST MEDICAL HISTORY: None. ALLERGIES: None. FAMILY HISTORY: Noncontributory. SOCIAL HISTORY: Lives at home. 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 PHYSICAL EXAMINATION: VITAL SIGNS: Blood pressure is 132/96, pulse 107. No fever. HEENT: NAD. CHEST: Bilaterally clear. CARDIOVASCULAR: Regular rhythm. No gallop. No murmur. ABDOMEN: Distended. Mild tenderness. EXTREMITIES: No edema. GENITOURINARY: Deferred. SKIN: The patient has facial injury and left eyebrow swelling and bruises. LABORATORY DATA: White counts are 20,000, hemoglobin 17, hematocrit 49, and platelets are 200,000. Chemistry panel, sodium 136, potassium 3.5, BUN 14, and creatinine 0.4. His albumin is 0.7, lipase 55, bilirubin 3.2. Urine pending. X-ray lung volume, bronchovascular crowding, right base ill-defined atelectasis . Head CT, no acute intracranial abnormality, scalp and periorbital hematoma facial injury. X-ray of face showing nasal bone fracture, otherwise acute left frontal scalp mild left facial soft-tissue contusion. His CT of abdomen showed probably perforated acute appendicitis, scattered appendicial thickening, small fluid collection . ASSESSMENT: 1. Perforated acute appendicitis. 2. Facial injury. 3. Nasal bone fracture. PLAN: Admit on medical floor. Start NPO, IV fluid, IV antibiotics. Surgery consult with Dr. Altman who had already seen the patient, placed on IV antibiotic. Consider ID consult. Also, heparin for DVT prophylaxis. Continue morphine for pain. Continue Pepcid. Oz Toth, M.D. DR: RASHIDA JOB#: [id number] CC:
--- NOTE | 2020-07-16 09:59 | History and Physical Report ---
DATE OF ADMISSION: 07/11/2020 HISTORY OF PRESENT ILLNESS: The patient is a 44-year-old male who came with abdominal pain, nausea, vomiting. The patient had a CT scan showing perforated appendix. The patient is also complaining of abdominal pain for 3 days. Also had facial injury for 2 days and has a nasal fracture. PAST MEDICAL HISTORY: Significant for none. ALLERGIES: None. FAMILY HISTORY: Noncontributory. SOCIAL HISTORY: Lives at home. REVIEW OF SYSTEMS: Generalized weakness, tired, fatigued, but alert and oriented x3. PHYSICAL EXAMINATION: VITAL SIGNS: Blood pressure is 120/70, pulse 104, respirations 18 to 24, temperature, no fever. SKIN: Good skin turgor. HEENT: The patient has facial injury . NECK: Supple. CHEST: Bilaterally clear. CARDIOVASCULAR: Regular rhythm. ABDOMEN: . Mild tenderness on palpation of lower abdomen. GENITOURINARY: Deferred guarding. ASSESSMENT: 1. Perforated appendix. 2. Facial injury. 3. Tachycardia. PLAN: Admit on medical floor. Start IV fluid, IV antibiotics. Surgery consult. Oz Toth M.D. DR: SOLANGE JOB#: [id number] CC:
[2020-07-16] MEDS: Heparin 5000 units/ml inj SUBQ SCH ×2 (10:08→20:26)
[2020-07-16] MEDS: Piperacillin/Tazobactam 3.375 GM in NS 110 ML IVPB SCH ×3 (10:34→23:51)
[2020-07-16 12:00] VITALS: BP 130/77
--- NOTE | 2020-07-16 13:13 | Surgery Progress Note ---
Surgery Progress Note Subjective Additional Comments afebrile, HD stable wbc 12k states was better yesterday no n/v/f/c repeat CT ordered Objective Last 24 Hour Vital Signs Date Time Temp Pulse Resp B/P (MAP) Pulse Ox O2 Delivery O2 Flow Rate FiO2 07/16/20 12:00 98.0 95 18 130/77 (94) 94 07/16/20 09:00 Room Air 07/16/20 08:00 97.9 82 20 138/84 (102) 98 07/16/20 03:53 97.8 78 140/84 (102) 07/15/20 21:00 Room Air 07/15/20 20:59 98.3 07/15/20 19:56 98.3 86 138/76 (96) 07/15/20 16:00 96.7 79 18 119/73 (88) 98 I&O Intake and Output 07/15/20 07/16/20 19:00 07:00 Intake Total 1070.0 ml 1220.0 ml Balance 1070.0 ml 1220.0 ml Intake Oral 500 ml 760 ml IV Total 570.0 ml 460.0 ml # Voids 3 4 Cardiovascular: RSR Respiratory: clear Abdomen: soft, flat, non-tender, present bowel sounds, non-distended Extremities: no edema, no tenderness, no cyanosis Laboratory Tests Test 07/16/20 05:26 White Blood Count 12.0 K/UL (4.8-10.8) H Red Blood Count 4.68 M/UL (4.70-6.10) L Hemoglobin 14.4 G/DL (14.2-18.0) Hematocrit 40.7 % (42.0-52.0) L Mean Corpuscular Volume 87 FL (80-99) Mean Corpuscular Hemoglobin 30.7 PG (27.0-31.0) Mean Corpuscular Hemoglobin Concent 35.4 G/DL (32.0-36.0) Red Cell Distribution Width 11.3 % (11.6-14.8) L Platelet Count 263 K/UL (150-450) Mean Platelet Volume 7.2 FL (6.5-10.1) Neutrophils (%) (Auto) 70.6 % (45.0-75.0) Lymphocytes (%) (Auto) 14.5 % (20.0-45.0) L Monocytes (%) (Auto) 12.8 % (1.0-10.0) H Eosinophils (%) (Auto) 1.5 % (0.0-3.0) Basophils (%) (Auto) 0.7 % (0.0-2.0) Sodium Level 138 MMOL/L (136-145) Potassium Level 3.2 MMOL/L (3.5-5.1) L Chloride Level 102 MMOL/L (98-107) Carbon Dioxide Level 24 MMOL/L (21-32) Anion Gap 12 mmol/L (5-15) Blood Urea Nitrogen 12 mg/dL (7-18) Creatinine 0.9 MG/DL (0.55-1.30) Estimat Glomerular Filtration Rate > 60 mL/min (>60) Glucose Level 91 MG/DL (74-106) Calcium Level 9.1 MG/DL (8.5-10.1) Plan Problems: (1) Dehydration (2) Hyperbilirubinemia (3) Nasal fracture (4) Facial contusion (5) Acute perforated appendicitis Assessment & Plan: 44-year-old male acute perforated appendicitis no abscess. Some mild bubbles of free air likely from the perforation. Abdominal exam with right lower quadrant tenderness mild distention no peritonitis. Leukocytosis dehydration. Given above will initiate nonoperative medical management acute perforated appendicitis. If improving will continue with course. Otherwise will need to go to operating room for exploration. Long session had at the patient's bedside in regards to findings and care plan. Patient expressed understanding. N.p.o. IV fluids IV antibiotics trend labs we will follow with examination recommendations thank you for let me participate in patient's care improving with medical management npo iv fluids iv abx trend labs afebrile, HD stable comfortable pain improved but still present no n/v/f/c +flatus +bm wbc resolved labs improved start clear liquid diet trail cont abx as pain improves and clinically improves will plan for transition to oral abx for dc abd exam improved afebrile, HD stable but today states feels a bit worse and wbc 12k repeat CT a/p ordered Celestine Joya Jul 16, 2020 13:13
[2020-07-16] MEDS ORDERED: Omnipaque-300 100ml vial INJ PRN (13:15)
[2020-07-16 16:00] VITALS: BP 142/83
--- NOTE | 2020-07-16 17:35 | NUR ---
NURSE NOTES: Patient Consented for CT for tomorrow; Consent in patient file;
--- NOTE | 2020-07-16 18:27 | NUR ---
NURSE NOTES: MD Toth aware that K 3.2; Order received to DC D5NS 20mEq; order carried out as order given;
--- NOTE | 2020-07-16 19:33 | NUR ---
NURSE NOTES: Received patient comfortably sleeping, no SOB noted.
--- NOTE | 2020-07-16 19:43 | NUR ---
NURSE HAND-OFF: Important Events on Shift:Hydration; Consent for CT-ABD Patient Status: Diet: Pending Orders: Pending Results/Labs: Pending MD notification: Latest Vital Signs: Temperature 99.8 , Pulse 80 , B/P 142 /83 , Respiratory Rate 19 , O2 SAT 94 , Room Air, O2 Flow Rate . Vital Sign Comment: Latest Kennedy Fall Score: 45 Fall Risk: High Risk Safety Measures: Call light Within Reach, Bed Alarm Zone 3, Side Rails Side Rails x2, Bed position Low and Locked. Fall Precautions: Patient Fall Education Report given to .
[2020-07-16 20:00] VITALS: BP 143/91
[2020-07-16 23:55] VITALS: BP 139/82
[2020-07-17 04:07] VITALS: BP 143/90
[2020-07-17 04:25] VITALS: BP 139/84
--- NOTE | 2020-07-17 06:44 | NUR ---
NURSE HAND-OFF: Important Events on Shift:[]Unremarkable Patient Status: [] Diet: []NPO Pending Orders: []CT Abdomen/pelvis contrast Pending Results/Labs:[] Pending MD notification:[] Latest Vital Signs: Temperature 96.5 , Pulse 77 , B/P 143 /90 , Respiratory Rate 16 , O2 SAT 95 , Room Air, O2 Flow Rate . Vital Sign Comment: [] Latest Kennedy Fall Score: 45 Fall Risk: High Risk Safety Measures: Call light Within Reach, Bed Alarm Zone 3, Side Rails Side Rails x2, Bed position Low and Locked. Fall Precautions: Patient Fall Education Report given to [].
[2020-07-17 08:00] VITALS: BP 137/98
--- NOTE | 2020-07-17 08:00 | NUR ---
NURSE NOTES: Patient awake and alert and oriented.Patient is NPO for schedule CT as ordered. No complaint at this time.Call light within reach. .
[2020-07-17] MEDS: Piperacillin/Tazobactam 3.375 GM in NS 110 ML IVPB SCH ×2 (09:00→17:31)
[2020-07-17] MEDS: Heparin 5000 units/ml inj SUBQ SCH ×2 (09:00→20:24)
[2020-07-17 09:06] LABS: BASOPHILS % (AUTO) 1.2 % (0.0-2.0); EOSINOPHILS % (AUTO) 1.3 % (0.0-3.0); HEMATOCRIT 41.2 % (42.0-52.0); HEMOGLOBIN 14.5 G/DL (14.2-18.0); LYMPHOCYTES % (AUTO) 13.3 % (20.0-45.0); MEAN CORPUSCULAR VOLUME 86 FL (80-99); MONOCYTES % (AUTO) 10.9 % (1.0-10.0); NEUTROPHILS % (AUTO) 73.4 % (45.0-75.0); PLATELET COUNT 330 K/UL (150-450); RED BLOOD COUNT 4.81 M/UL (4.70-6.10); RED CELL DISTRIBUTION WIDTH 11.2 % (11.6-14.8); WHITE BLOOD COUNT 14.4 K/UL (4.8-10.8)
[2020-07-17 09:32] LABS: ALANINE AMINOTRANSFERASE 36 U/L (12-78); ALBUMIN 2.5 G/DL (3.4-5.0); ALBUMIN/GLOBULIN RATIO 0.5 (1.0-2.7); ALKALINE PHOSPHATASE 65 U/L (46-116); ANION GAP 10 mmol/L (5-15); ASPARTATE AMINO TRANSFERASE 32 U/L (15-37); BILIRUBIN,TOTAL 0.5 MG/DL (0.2-1.0); BLOOD UREA NITROGEN 12 mg/dL (7-18); CALCIUM 8.7 MG/DL (8.5-10.1); CARBON DIOXIDE 25 MMOL/L (21-32); CHLORIDE 104 MMOL/L (98-107); CREATININE 0.8 MG/DL (0.55-1.30); POTASSIUM 3.7 MMOL/L (3.5-5.1); SODIUM 139 MMOL/L (136-145)
--- NOTE | 2020-07-17 11:02 | NUR ---
RD ASSESSMENT & RECOMMENDATIONS SEE CARE ACTIVITY FOR COMPLETE ASSESSMENT DAILY ESTIMATED NEEDS: Needs based on General 70 kg abw 25-30 kcals/kg 5150-0330 total kcals .8-1 g protein/kg 56-70 g total protein 25-30 mL/kg 0197-4383 total fluid mLs NUTRITION DIAGNOSIS: Altered nutrition related lab values r/t clinical status as evidenced by tmax 99.8, elev WBC 14.4. CURRENT DIET: Regular -> now NPO for CT PO DIET RECOMMENDATIONS: Soft diet as able ADDITIONAL RECOMMENDATIONS: 1) Monitor when diet resumes, po intake and tolerance 2) F/up post CT scan 3) adm w/ facial trauma rec soft easy chew
[2020-07-17 12:00] VITALS: BP 139/98
--- NOTE | 2020-07-17 12:07 | Surgery Progress Note ---
Surgery Progress Note Subjective Additional Comments low grade fever wbc noted feels bloated repeat CT pending Objective Last 24 Hour Vital Signs Date Time Temp Pulse Resp B/P (MAP) Pulse Ox O2 Delivery O2 Flow Rate FiO2 07/17/20 08:00 99.7 84 18 137/98 (111) 95 07/17/20 04:07 96.5 77 16 143/90 (107) 95 07/16/20 23:55 99.1 76 18 139/82 (101) 96 07/16/20 20:14 Room Air 07/16/20 20:00 96.4 77 18 143/91 (108) 94 07/16/20 16:00 99.8 80 19 142/83 (102) 94 I&O Intake and Output 0 07/16/20 07/17/20 19:00 07:00 Intake Total 1357.5 ml 192.5 ml Balance 1357.5 ml 192.5 ml Intake Oral 720 ml IV Total 637.5 ml 192.5 ml # Voids 3 2 Cardiovascular: RSR Respiratory: clear Abdomen: soft, distended, non-tender, present bowel sounds Extremities: no edema, no tenderness, no cyanosis Laboratory Tests Test 07/17/20 08:50 White Blood Count 14.4 K/UL (4.8-10.8) H Red Blood Count 4.81 M/UL (4.70-6.10) Hemoglobin 14.5 G/DL (14.2-18.0) Hematocrit 41.2 % (42.0-52.0) L Mean Corpuscular Volume 86 FL (80-99) Mean Corpuscular Hemoglobin 30.1 PG (27.0-31.0) Mean Corpuscular Hemoglobin Concent 35.1 G/DL (32.0-36.0) Red Cell Distribution Width 11.2 % (11.6-14.8) L Platelet Count 330 K/UL (150-450) Mean Platelet Volume 6.5 FL (6.5-10.1) Neutrophils (%) (Auto) 73.4 % (45.0-75.0) Lymphocytes (%) (Auto) 13.3 % (20.0-45.0) L Monocytes (%) (Auto) 10.9 % (1.0-10.0) H Eosinophils (%) (Auto) 1.3 % (0.0-3.0) Basophils (%) (Auto) 1.2 % (0.0-2.0) Erythrocyte Sedimentation Rate 57 MM/HR (0-15) H Sodium Level 139 MMOL/L (136-145) Potassium Level 3.7 MMOL/L (3.5-5.1) Chloride Level 104 MMOL/L (98-107) Carbon Dioxide Level 25 MMOL/L (21-32) Anion Gap 10 mmol/L (5-15) Blood Urea Nitrogen 12 mg/dL (7-18) Creatinine 0.8 MG/DL (0.55-1.30) Estimat Glomerular Filtration Rate > 60 mL/min (>60) Glucose Level 99 MG/DL (74-106) Calcium Level 8.7 MG/DL (8.5-10.1) Total Bilirubin 0.5 MG/DL (0.2-1.0) Aspartate Amino Transf (AST/SGOT) 32 U/L (15-37) Alanine Aminotransferase (ALT/SGPT) 36 U/L (12-78) Alkaline Phosphatase 65 U/L (46-116) C-Reactive Protein, Quantitative 19.5 mg/dL (0.00-0.90) H Total Protein 7.5 G/DL (6.4-8.2) Albumin 2.5 G/DL (3.4-5.0) L Globulin 5.0 g/dL Albumin/Globulin Ratio 0.5 (1.0-2.7) L Plan Problems: (1) Dehydration (2) Hyperbilirubinemia (3) Nasal fracture (4) Facial contusion (5) Acute perforated appendicitis Assessment & Plan: 44-year-old male acute perforated appendicitis no abscess. Some mild bubbles of free air likely from the perforation. Abdominal exam with right lower quadrant tenderness mild distention no peritonitis. Leukocytosis dehydration. Given above will initiate nonoperative medical management acute perforated appendicitis. If improving will continue with course. Otherwise will need to go to operating room for exploration. Long session had at the patient's bedside in regards to findings and care plan. Patient expressed understanding. N.p.o. IV fluids IV antibiotics trend labs we will follow with examination recommendations thank you for let me participate in patient's care improving with medical management npo iv fluids iv abx trend labs afebrile, HD stable comfortable pain improved but still present no n/v/f/c +flatus +bm wbc resolved labs improved start clear liquid diet trail cont abx as pain improves and clinically improves will plan for transition to oral abx for dc abd exam improved afebrile, HD stable but today states feels a bit worse and wbc 12k repeat CT a/p ordered Celestine Joya Jul 17, 2020 12:07
--- NOTE | 2020-07-17 13:27 | Diagnostic Imaging Report ---
EXAM: CT CT Abdomen Pelvis w/Contrast INDICATION: Abdominal pain. COMPARISON: 07/11/2020 TECHNIQUE: Axial images were obtained through the abdomen pelvis with intravenous contrast. Sagittal and coronal reformats are generated. All CT scans at this facility are performed using dose modulation techniques as appropriate to a performed exam including the following: automated exposure control with adjustment of the mA and/or kV according to patient size. RADIATION DOSE: CTDIvol: 7.2 mGy DLP: 418.1 mGy-cm Dose information generated by the CT scanner is available in PACS. FINDINGS: There is a small right effusion. Dependent atelectasis or infiltrates in both lung bases. The liver and spleen are homogeneous. Gallbladder is without sludge or stone and there is no wall thickening. The pancreas is unremarkable. Adrenals are normal in morphology. The kidneys are normal in size, shape and axis. Small bowel loops are nondistended. There is redemonstration of a distended, inflamed and enhancing appendix as seen previously. There is now a new lobulated fluid and air collection seen adjacent to the appendix measuring at least 7 x 3 cm consistent with a periappendiceal abscess. No pathologic adenopathy demonstrated. Urinary bladder appears unremarkable. There is no suspicious superficial soft tissue or osseous abnormality. IMPRESSION: REDEMONSTRATION OF ACUTE APPENDICITIS NOTED PREVIOUSLY. THERE IS NEW ADJACENT COMPLEX FLUID COLLECTION CONTAINING FLUID AND AIR LUCENCIES AND SURROUNDING INFLAMMATION. THIS LIKELY REFLECTS A PERFORATED APPENDICITIS WITH PERIAPPENDICEAL ABSCESS. SMALL RIGHT PLEURAL EFFUSION. DEPENDENT ATELECTASIS VERSUS INFILTRATES IN BOTH LUNG BASES.
[2020-07-17 16:00] VITALS: BP 143/88
--- NOTE | 2020-07-17 17:52 | General Progress Note ---
Subjective Allergies: Coded Allergies: No Known Allergies (Unverified , 07/11/20) Subjective awake abdo pain npo per surgery abdo pain improving Objective Last 24 Hour Vital Signs Date Time Temp Pulse Resp B/P (MAP) Pulse Ox O2 Delivery O2 Flow Rate FiO2 07/17/20 16:00 99.0 88 18 143/88 (106) 94 07/17/20 12:00 99.7 84 18 139/98 (112) 95 07/17/20 09:00 Room Air 07/17/20 08:00 99.7 84 18 137/98 (111) 95 07/17/20 04:07 96.5 77 16 143/90 (107) 95 07/16/20 23:55 99.1 76 18 139/82 (101) 96 07/16/20 20:14 Room Air 07/16/20 20:00 96.4 77 18 143/91 (108) 94 Intake and Output 07/16/20 07/17/20 19:00 07:00 Intake Total 1357.5 ml 192.5 ml Balance 1357.5 ml 192.5 ml Intake Oral 720 ml IV Total 637.5 ml 192.5 ml # Voids 3 2 Laboratory Tests 07/17/20 08:50: White Blood Count 14.4H, Red Blood Count 4.81, Hemoglobin 14.5, Hematocrit 41.2L , Mean Corpuscular Volume 86, Mean Corpuscular Hemoglobin 30.1, Mean Corpuscular Hemoglobin Concent 35.1, Red Cell Distribution Width 11.2L, Platelet Count 330, Mean Platelet Volume 6.5, Neutrophils (%) (Auto) 73.4, Lymphocytes (%) (Auto) 13.3L, Monocytes (%) (Auto) 10.9H, Eosinophils (%) (Auto) 1.3, Basophils (%) (Auto) 1.2, Erythrocyte Sedimentation Rate 57H, Sodium Level 139, Potassium Level 3.7, Chloride Level 104, Carbon Dioxide Level 25, Anion Gap 10, Blood Urea Nitrogen 12, Creatinine 0.8, Estimat Glomerular Filtration Rate > 60, Glucose Level 99, Calcium Level 8.7, Total Bilirubin 0.5, Aspartate Amino Transf (AST/SGOT) 32, Alanine Aminotransferase (ALT/SGPT) 36, Alkaline Phosphatase 65, C-Reactive Protein, Quantitative 19.5H, Total Protein 7.5, Albumin 2.5L, Globulin 5.0, Albumin/Globulin Ratio 0.5L Height (Feet): 5 Height (Inches): 6.00 Weight (Pounds): 188 General Appearance: alert EENT: PERRL/EOMI Neck: supple Cardiovascular: normal rate Respiratory/Chest: normal breath sounds Abdomen: soft, tender Extremities: non-tender Assessment/Plan Assessment/Plan: ac appendticitis with perforation , clinically imroving with medical tx, no surgery at this point by surgery facial injury nose fracture ct of abdo abscess npo conserative tx iv abx wbc down dw surgery on the case dw pt prognosis guarded Eulogio Toth MD Jul 17, 2020 17:52
--- NOTE | 2020-07-17 19:00 | NUR ---
NURSE NOTES: Patient to remain NPO .DR Joya aware of CT scan results.DR Toth aware of patient NPO status , will start IV fluids as ordered. Call light within reach.
--- NOTE | 2020-07-17 19:30 | NUR ---
Received patient in bed, awake, alert, oriented x4, Khmer speaking, patient is NPO, on D5W at 75 cc/hr, IV site is clean dry and intact, can use urinal, call light is within reach, bed is lowered, locked, alarm is on, will continue to monitor for comfort and safety.
[2020-07-17 20:00] VITALS: BP 140/85
[2020-07-18] VITALS: BP 128/80
[2020-07-18 04:00] VITALS: BP 139/84
--- NOTE | 2020-07-18 07:24 | NUR ---
NURSE HAND-OFF: Important Events on Shift: uneventful Patient Status: full code Diet: NPO Pending Orders: Pending Results/Labs: Pending MD notification: Latest Vital Signs: Temperature 98.2 , Pulse 88 , B/P 139 /84 , Respiratory Rate 16 , O2 SAT 94 , Room Air, O2 Flow Rate . Vital Sign Comment: Latest Kennedy Fall Score: 45 Fall Risk: High Risk Safety Measures: Call light Within Reach, Bed Alarm Zone 3, Side Rails Side Rails x2, Bed position Low and Locked. Fall Precautions: Patient Fall Education Report given to Harsha MUHAMMAD
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
[2020-07-18 08:00] VITALS: BP 119/72
[2020-07-18] MEDS: Piperacillin/Tazobactam 3.375 GM in NS 110 ML IVPB SCH ×5 (08:25→23:27)
[2020-07-18] MEDS: Heparin 5000 units/ml inj SUBQ SCH ×2 (08:26→21:00)
[2020-07-18] MEDS ORDERED: Sodium Bicarbonate 4% 2.4meq/5ml vial IV PRN (10:15)
[2020-07-18] MEDS: Lidocaine 1% Plain 30 ml INJ SCH (10:15)
[2020-07-18 12:00] VITALS: BP 126/78
[2020-07-18 16:00] VITALS: BP 120/75
--- NOTE | 2020-07-18 16:45 | General Progress Note ---
Subjective Allergies: Coded Allergies: No Known Allergies (Unverified , 07/11/20) Subjective awake abdo pain npo per surgery abdo pain improving Objective Last 24 Hour Vital Signs Date Time Temp Pulse Resp B/P (MAP) Pulse Ox O2 Delivery O2 Flow Rate FiO2 07/18/20 16:00 98.2 75 18 120/75 (90) 95 07/18/20 12:00 98.5 77 18 126/78 (94) 94 07/18/20 09:00 Room Air 07/18/20 08:00 97.6 80 18 119/72 (88) 94 07/18/20 04:00 98.2 88 16 139/84 (102) 94 07/18/20 00:00 100.1 86 17 128/80 (96) 94 07/17/20 21:13 Room Air 07/17/20 20:00 97.4 93 18 140/85 (103) 96 Intake and Output 07/17/20 07/18/20 19:00 07:00 Intake Total 75 ml Output Total 600 ml Balance -600 ml 75 ml IV Total 75 ml Output Urine Total 600 ml # Voids 4 Height (Feet): 5 Height (Inches): 6.00 Weight (Pounds): 188 General Appearance: alert EENT: PERRL/EOMI Neck: supple Cardiovascular: regular rhythm Respiratory/Chest: lungs clear Abdomen: distended, tender Extremities: non-tender Assessment/Plan Assessment/Plan: ac appendticitis with perforation , clinically imroving with medical tx, no surgery at this point by surgery facial injury nose fracture ct of abdo abscess npo conserative tx iv abx wbc down dw surgery on the case dw pt prognosis guarded Eulogio Toth MD Jul 18, 2020 16:45
--- NOTE | 2020-07-18 17:18 | Surgery Progress Note ---
Surgery Progress Note Subjective Additional Comments CT noted today's radiology could not drain will discuss with patient re tx plan Objective Last 24 Hour Vital Signs Date Time Temp Pulse Resp B/P (MAP) Pulse Ox O2 Delivery O2 Flow Rate FiO2 07/18/20 16:00 98.2 75 18 120/75 (90) 95 07/18/20 12:00 98.5 77 18 126/78 (94) 94 07/18/20 09:00 Room Air 07/18/20 08:00 97.6 80 18 119/72 (88) 94 07/18/20 04:00 98.2 88 16 139/84 (102) 94 07/18/20 00:00 100.1 86 17 128/80 (96) 94 07/17/20 21:13 Room Air 07/17/20 20:00 97.4 93 18 140/85 (103) 96 I&O Intake and Output 07/17/20 07/18/20 19:00 07:00 Intake Total 75 ml Output Total 600 ml Balance -600 ml 75 ml IV Total 75 ml Output Urine Total 600 ml # Voids 4 Cardiovascular: RSR Respiratory: clear Abdomen: soft, flat, non-tender, present bowel sounds Extremities: no edema, no tenderness, no cyanosis Plan Problems: (1) Dehydration (2) Hyperbilirubinemia (3) Nasal fracture (4) Facial contusion (5) Acute perforated appendicitis Assessment & Plan: 44-year-old male acute perforated appendicitis no abscess. Some mild bubbles of free air likely from the perforation. Abdominal exam with right lower quadrant tenderness mild distention no peritonitis. Leukocytosis dehydration. Given above will initiate nonoperative medical management acute perforated appendicitis. If improving will continue with course. Otherwise will need to go to operating room for exploration. Long session had at the patient's bedside in regards to findings and care plan. Patient expressed understanding. N.p.o. IV fluids IV antibiotics trend labs we will follow with examination recommendations thank you for let me participate in patient's care improving with medical management npo iv fluids iv abx trend labs afebrile, HD stable comfortable pain improved but still present no n/v/f/c +flatus +bm wbc resolved labs improved start clear liquid diet trail cont abx as pain improves and clinically improves will plan for transition to oral abx for dc abd exam improved afebrile, HD stable but today states feels a bit worse and wbc 12k repeat CT a/p ordered Celestine Joya Jul 18, 2020 17:18
--- NOTE | 2020-07-18 19:05 | NUR ---
NURSE NOTES: Received report from JB Thornton. Pt is in bed A&Ox4. Call light within reach, side rails up x2, bed locked and in lowest position. IVF infusing well, pt is ambulatory. Radiology was unable to do his procedure today and said he will speak with the patient tomorrow. Will continue to monitor.
--- NOTE | 2020-07-18 19:23 | NUR ---
NURSE HAND-OFF REPORT: Important Events on Shift:[cancelled CT guided drain placement] Patient Status: [Full code] Diet: [NPO] Pending Orders: [N/A] Pending Results/Labs:[CBC, CMP] Pending MD notification:[N/A] Latest Vital Signs: Temperature 98.2 , Pulse 75 , B/P 120 /75 , Respiratory Rate 18 , O2 SAT 95 , Room Air, O2 Flow Rate . Vital Sign Comment: [] EKG Rhythm: Sinus Tachycardia Rhythm change?: MD Notified?: - MD Response: Latest Kennedy Fall Score: 45 Fall Risk: High Risk Safety Measures: Call light Within Reach, Bed Alarm Zone 3, Side Rails Side Rails x2, Bed position Low and Locked. Fall Precautions: Patient Fall Education Report given to [JB Regalado].
[2020-07-18 20:00] VITALS: BP 131/68
[2020-07-19] VITALS: BP 134/65
[2020-07-19 04:00] VITALS: BP 127/70
[2020-07-19 06:38] LABS: BASOPHILS % (AUTO) 0.4 % (0.0-2.0); HEMOGLOBIN 14.5 G/DL (14.2-18.0); MEAN CORPUSCULAR VOLUME 86 FL (80-99); MONOCYTES % (AUTO) 6.9 % (1.0-10.0); NEUTROPHILS % (AUTO) 80.7 % (45.0-75.0); PLATELET COUNT 407 K/UL (150-450); RED BLOOD COUNT 4.87 M/UL (4.70-6.10); RED CELL DISTRIBUTION WIDTH 11.3 % (11.6-14.8); WHITE BLOOD COUNT 17.4 K/UL (4.8-10.8)
--- NOTE | 2020-07-19 07:02 | NUR ---
NURSE HAND-OFF: Important Events on Shift: antibiotics administered, had good sleep Patient Status: sleeping Diet: NPO Pending Orders: Pending Results/Labs: Pending MD notification: Latest Vital Signs: Temperature 98.2 , Pulse 79 , B/P 127 /70 , Respiratory Rate 16 , O2 SAT 96 , Room Air, O2 Flow Rate . Vital Sign Comment: VSS Latest Kennedy Fall Score: 45 Fall Risk: High Risk Safety Measures: Call light Within Reach, Bed Alarm Zone 3, Side Rails Side Rails x2, Bed position Low and Locked. Fall Precautions: Patient Fall Education Report given to JB Schwartz.
[2020-07-19 07:10] LABS: ALANINE AMINOTRANSFERASE 47 U/L (12-78); ALBUMIN 2.4 G/DL (3.4-5.0); ALBUMIN/GLOBULIN RATIO 0.5 (1.0-2.7); ALKALINE PHOSPHATASE 69 U/L (46-116); ANION GAP 12 mmol/L (5-15); ASPARTATE AMINO TRANSFERASE 30 U/L (15-37); BILIRUBIN,TOTAL 0.4 MG/DL (0.2-1.0); BLOOD UREA NITROGEN 8 mg/dL (7-18); CALCIUM 9.1 MG/DL (8.5-10.1); CARBON DIOXIDE 25 MMOL/L (21-32); CHLORIDE 101 MMOL/L (98-107); CREATININE 0.9 MG/DL (0.55-1.30); POTASSIUM 3.3 MMOL/L (3.5-5.1); SODIUM 137 MMOL/L (136-145)
[2020-07-19 08:00] VITALS: BP 118/82
--- NOTE | 2020-07-19 08:48 | Surgery Progress Note ---
Surgery Progress Note Subjective Additional Comments radiologist yesterday did not feel comfortable with drainage guided of abscess. discussed with patient. new radiologist on tuesday. he is afebrile, HD stable, looks okay, pain resolved. does have a wbc given clinically stable recommend second opinion radiology tuesday. if unable will proceed with surgery tuesday which would be second to radiological drainage as morbidity greater with surgery given clinical situation Objective Last 24 Hour Vital Signs Date Time Temp Pulse Resp B/P (MAP) Pulse Ox O2 Delivery O2 Flow Rate FiO2 07/19/20 04:00 98.2 79 16 127/70 (89) 96 07/19/20 00:00 98.4 71 16 134/65 (88) 95 07/18/20 21:00 Room Air 07/18/20 20:00 98.1 76 16 131/68 (89) 96 07/18/20 16:00 98.2 75 18 120/75 (90) 95 07/18/20 12:00 98.5 77 18 126/78 (94) 94 07/18/20 09:00 Room Air I&O Intake and Output 07/18/20 07/19/20 19:00 07:00 Intake Total 825 ml Balance 825 ml IV Total 825 ml # Voids 2 2 Cardiovascular: RSR Respiratory: clear Abdomen: soft, flat, non-tender, present bowel sounds, non-distended Extremities: no edema, no tenderness, no cyanosis Laboratory Tests Test 07/19/20 05:50 White Blood Count 17.4 K/UL (4.8-10.8) H Red Blood Count 4.87 M/UL (4.70-6.10) Hemoglobin 14.5 G/DL (14.2-18.0) Hematocrit 42.0 % (42.0-52.0) Mean Corpuscular Volume 86 FL (80-99) Mean Corpuscular Hemoglobin 29.8 PG (27.0-31.0) Mean Corpuscular Hemoglobin Concent 34.5 G/DL (32.0-36.0) Red Cell Distribution Width 11.3 % (11.6-14.8) L Platelet Count 407 K/UL (150-450) Mean Platelet Volume 6.1 FL (6.5-10.1) L Neutrophils (%) (Auto) 80.7 % (45.0-75.0) H Lymphocytes (%) (Auto) 11.0 % (20.0-45.0) L Monocytes (%) (Auto) 6.9 % (1.0-10.0) Eosinophils (%) (Auto) 1.0 % (0.0-3.0) Basophils (%) (Auto) 0.4 % (0.0-2.0) Sodium Level 137 MMOL/L (136-145) Potassium Level 3.3 MMOL/L (3.5-5.1) L Chloride Level 101 MMOL/L (98-107) Carbon Dioxide Level 25 MMOL/L (21-32) Anion Gap 12 mmol/L (5-15) Blood Urea Nitrogen 8 mg/dL (7-18) Creatinine 0.9 MG/DL (0.55-1.30) Estimat Glomerular Filtration Rate > 60 mL/min (>60) Glucose Level 104 MG/DL (74-106) Calcium Level 9.1 MG/DL (8.5-10.1) Total Bilirubin 0.4 MG/DL (0.2-1.0) Aspartate Amino Transf (AST/SGOT) 30 U/L (15-37) Alanine Aminotransferase (ALT/SGPT) 47 U/L (12-78) Alkaline Phosphatase 69 U/L (46-116) Total Protein 7.4 G/DL (6.4-8.2) Albumin 2.4 G/DL (3.4-5.0) L Globulin 5.0 g/dL Albumin/Globulin Ratio 0.5 (1.0-2.7) L Plan Problems: (1) Dehydration (2) Hyperbilirubinemia (3) Nasal fracture (4) Facial contusion (5) Acute perforated appendicitis Assessment & Plan: 44-year-old male acute perforated appendicitis no abscess. Some mild bubbles of free air likely from the perforation. Abdominal exam with right lower quadrant tenderness mild distention no peritonitis. Leukocytosis dehydration. Given above will initiate nonoperative medical management acute perforated appendicitis. If improving will continue with course. Otherwise will need to go to operating room for exploration. Long session had at the patient's bedside in regards to findings and care plan. Patient expressed understanding. N.p.o. IV fluids IV antibiotics trend labs we will follow with examination recommendations thank you for let me participate in patient's care improving with medical management npo iv fluids iv abx trend labs afebrile, HD stable comfortable pain improved but still present no n/v/f/c +flatus +bm wbc resolved labs improved start clear liquid diet trail cont abx as pain improves and clinically improves will plan for transition to oral abx for dc abd exam improved afebrile, HD stable but today states feels a bit worse and wbc 12k repeat CT a/p ordered radiologist yesterday did not feel comfortable with drainage guided of abscess. discussed with patient. new radiologist on tuesday. he is afebrile, HD stable, looks okay, pain resolved. does have a wbc given clinically stable recommend second opinion radiology tuesday. if unable will proceed with surgery tuesday which would be second to radiological drainage as morbidity greater with surgery given clinical situation Celestine Joya Jul 19, 2020 08:48
--- NOTE | 2020-07-19 08:56 | NUR ---
NURSE NOTES: Patient awake, alert x4; on room air: both eyes discoloration noted; IV running at LW; side rails up x2, breaks engaged, bed at lowest position; call light within reach; will keep on monitoring.
[2020-07-19] MEDS: Heparin 5000 units/ml inj SUBQ SCH ×2 (10:03→21:11)
[2020-07-19] MEDS: Lidocaine 1% Plain 30 ml INJ SCH (10:15)
[2020-07-19] MEDS: Piperacillin/Tazobactam 3.375 GM in NS 110 ML IVPB SCH ×3 (10:40→23:33)
[2020-07-19 12:00] VITALS: BP 123/68
--- NOTE | 2020-07-19 13:46 | NUR ---
CASE MANAGEMENT:REVIEW 07/19/20 SI: ACUTE PERFORATED APPENDICITIS 98.5 71 18 123/68 95% ON RA WBC+17.4 K-3.3 IS: IV ZOSYN Q8HR HEPARIN SQ Q12 IV PEPCID Q12 IVF@75/HR : MED/SURG STATUS DCP: FRM HOME PLAN: NON OPERATIVE MEDICAL MANAGEMENT IF NO IMPROVEMENT WILL NEED TO GO TO OR
[2020-07-19 16:00] VITALS: BP 121/78
--- NOTE | 2020-07-19 19:32 | NUR ---
NURSE HAND-OFF: Important Events on Shift:Hydration; Antibiotics; Patient Status: Diet: Pending Orders: Pending Results/Labs: Pending MD notification: Latest Vital Signs: Temperature 97.7 , Pulse 69 , B/P 121 /78 , Respiratory Rate 18 , O2 SAT 97 , Room Air, O2 Flow Rate . Vital Sign Comment: Latest Kennedy Fall Score: 45 Fall Risk: High Risk Safety Measures: Call light Within Reach, Bed Alarm Zone 3, Side Rails Side Rails x2, Bed position Low and Locked. Fall Precautions: Patient Fall Education Report given to .
--- NOTE | 2020-07-19 19:39 | General Progress Note ---
Subjective Allergies: Coded Allergies: No Known Allergies (Unverified , 07/11/20) Subjective awake abdo pain better on regular diet per surgery abdo pain improving Objective Last 24 Hour Vital Signs Date Time Temp Pulse Resp B/P (MAP) Pulse Ox O2 Delivery O2 Flow Rate FiO2 07/19/20 16:00 97.7 69 18 121/78 (92) 97 07/19/20 12:00 98.5 71 18 123/68 (86) 95 07/19/20 09:00 Room Air 07/19/20 08:00 98.0 80 18 118/82 (94) 95 07/19/20 04:00 98.2 79 16 127/70 (89) 96 07/19/20 00:00 98.4 71 16 134/65 (88) 95 07/18/20 21:00 Room Air 07/18/20 20:00 98.1 76 16 131/68 (89) 96 Intake and Output 07/18/20 07/19/20 19:00 07:00 Intake Total 825 ml 75 ml Balance 825 ml 75 ml IV Total 825 ml 75 ml # Voids 2 2 Laboratory Tests 07/19/20 05:50: White Blood Count 17.4H, Red Blood Count 4.87, Hemoglobin 14.5, Hematocrit 42.0, Mean Corpuscular Volume 86, Mean Corpuscular Hemoglobin 29.8, Mean Corpuscular Hemoglobin Concent 34.5, Red Cell Distribution Width 11.3L, Platelet Count 407, Mean Platelet Volume 6.1L, Neutrophils (%) (Auto) 80.7H, Lymphocytes (%) (Auto) 11.0L, Monocytes (%) (Auto) 6.9, Eosinophils (%) (Auto) 1.0, Basophils (%) (Auto) 0.4, Sodium Level 137, Potassium Level 3.3L, Chloride Level 101, Carbon Dioxide Level 25, Anion Gap 12, Blood Urea Nitrogen 8, Creatinine 0.9, Estimat Glomerular Filtration Rate > 60, Glucose Level 104, Calcium Level 9.1, Total Bilirubin 0.4, Aspartate Amino Transf (AST/SGOT) 30, Alanine Aminotransferase (ALT/SGPT) 47, Alkaline Phosphatase 69, Total Protein 7.4, Albumin 2.4L, Globulin 5.0, Albumin/Globulin Ratio 0.5L Height (Feet): 5 Height (Inches): 6.00 Weight (Pounds): 188 General Appearance: alert EENT: PERRL/EOMI Neck: supple Cardiovascular: regular rhythm Respiratory/Chest: chest wall non-tender Abdomen: soft, tender Assessment/Plan Assessment/Plan: ac appendticitis with perforation , clinically imroving with medical tx, facial injury nose fracture ct of abdo abscess regular diet conserative tx iv abx wbc down dw surgery dw with charge nurse Eulogio Toth MD Jul 19, 2020 19:39
[2020-07-19 20:00] VITALS: BP 130/78
--- NOTE | 2020-07-19 20:46 | NUR ---
NURSE NOTES: patient in bed, awake, alert and verbally responsive. Divehi speaking. Complaining of abdominal pain 6/10. No pain meds. Will contact MD. Skin is warm and dry to touch. Iv site noted, iv fluid and antibiotics running. Bed in low and locked position. Respiration is even and unlabored. Call light is at bedside. Will continue plan of care.
[2020-07-19] MEDS ORDERED: Morphine Sulfate 4mg/ml Inj (IV USE ONLY) IVP PRN (21:00)
[2020-07-19] MEDS: Morphine Sulfate 2mg/ml Inj(IV/IM USE ONLY) IVP PRN (21:10)
[2020-07-20] VITALS (7 sets, daily range): BP systolic 111–132; BP diastolic 72–81
[2020-07-20 06:37] LABS: HEMOGLOBIN 13.6 G/DL (14.2-18.0); MEAN CORPUSCULAR VOLUME 87 FL (80-99); PLATELET COUNT 399 K/UL (150-450); RED BLOOD COUNT 4.46 M/UL (4.70-6.10); RED CELL DISTRIBUTION WIDTH 11.1 % (11.6-14.8); WHITE BLOOD COUNT 18.9 K/UL (4.8-10.8)
--- NOTE | 2020-07-20 07:17 | NUR ---
NURSE HAND-OFF: Important Events on Shift:WNL Patient Status: Diet: REG Pending Orders: Pending Results/Labs: Pending MD notification: Latest Vital Signs: Temperature 98.2 , Pulse 70 , B/P 132 /75 , Respiratory Rate 16 , O2 SAT 99 , Room Air, O2 Flow Rate . Vital Sign Comment: WNL Latest Kennedy Fall Score: 45 Fall Risk: High Risk Safety Measures: Call light Within Reach, Bed Alarm Zone 3, Side Rails Side Rails x2, Bed position Low and Locked. Fall Precautions: Patient Fall Education Report given to JB Mendoza.
--- NOTE | 2020-07-20 07:20 | NUR ---
NURSE NOTES: Handoff received from Dipak MUHAMMAD. PAtient is awake and alert, no signs of acute distress noted, no reports of pain at this time. LEft wrist IV is intact and running IVF as ordered. Bed is low and locked, side rails up x2, call light is within reach.
[2020-07-20] MEDS: Piperacillin/Tazobactam 3.375 GM in NS 110 ML IVPB SCH ×3 (08:00→23:33)
[2020-07-20] MEDS: Heparin 5000 units/ml inj SUBQ SCH ×2 (08:01→21:50)
[2020-07-20] MEDS: Lidocaine 1% Plain 30 ml INJ SCH (10:15)
--- NOTE | 2020-07-20 10:46 | Surgery Progress Note ---
Surgery Progress Note Subjective Additional Comments feels okay tolerating diet labs noted plan for IR drain tomorrow second radiologist. if not possible plan OR Objective Last 24 Hour Vital Signs Date Time Temp Pulse Resp B/P (MAP) Pulse Ox O2 Delivery O2 Flow Rate FiO2 07/20/20 09:00 Room Air 07/20/20 08:00 97.6 65 20 117/76 (90) 95 07/20/20 04:00 98.2 70 16 132/75 (94) 99 07/20/20 00:00 98.4 78 16 127/81 (96) 99 07/19/20 21:00 Room Air 07/19/20 20:00 98.6 74 16 130/78 (95) 100 07/19/20 16:00 97.7 69 18 121/78 (92) 97 07/19/20 12:00 98.5 71 18 123/68 (86) 95 I&O Intake and Output 07/19/20 07/20/20 19:00 07:00 Intake Total 1637.5 ml 927.5 ml Output Total 200 ml Balance 1437.5 ml 927.5 ml Intake Oral 600 ml 360 ml IV Total 1037.5 ml 567.5 ml Output Urine Total 200 ml # Voids 2 Cardiovascular: RSR Respiratory: clear Abdomen: soft, non-tender, present bowel sounds, non-distended Extremities: no edema, no tenderness, no cyanosis Laboratory Tests Test 07/20/20 05:39 White Blood Count 18.9 K/UL (4.8-10.8) H Red Blood Count 4.46 M/UL (4.70-6.10) L Hemoglobin 13.6 G/DL (14.2-18.0) L Hematocrit 39.0 % (42.0-52.0) L Mean Corpuscular Volume 87 FL (80-99) Mean Corpuscular Hemoglobin 30.6 PG (27.0-31.0) Mean Corpuscular Hemoglobin Concent 35.0 G/DL (32.0-36.0) Red Cell Distribution Width 11.1 % (11.6-14.8) L Platelet Count 399 K/UL (150-450) Mean Platelet Volume 6.4 FL (6.5-10.1) L Neutrophils (%) (Auto) % (45.0-75.0) Lymphocytes (%) (Auto) % (20.0-45.0) Monocytes (%) (Auto) % (1.0-10.0) Eosinophils (%) (Auto) % (0.0-3.0) Basophils (%) (Auto) % (0.0-2.0) Differential Total Cells Counted 100 Neutrophils % (Manual) 73 % (45-75) Lymphocytes % (Manual) 10 % (20-45) L Monocytes % (Manual) 9 % (1-10) Eosinophils % (Manual) 1 % (0-3) Basophils % (Manual) 0 % (0-2) Myelocytes % 2 % (0-0) H Band Neutrophils 5 % (0-8) Platelet Estimate Adequate Platelet Morphology Normal Red Blood Cell Morphology Normal C-Reactive Protein, Quantitative 18.1 mg/dL (0.00-0.90) H Plan Problems: (1) Dehydration (2) Hyperbilirubinemia (3) Nasal fracture (4) Facial contusion (5) Acute perforated appendicitis Assessment & Plan: 44-year-old male acute perforated appendicitis no abscess. Some mild bubbles of free air likely from the perforation. Abdominal exam with right lower quadrant tenderness mild distention no peritonitis. Leukocytosis dehydration. Given above will initiate nonoperative medical management acute perforated appendicitis. If improving will continue with course. Otherwise will need to go to operating room for exploration. Long session had at the patient's bedside in regards to findings and care plan. Patient expressed understanding. N.p.o. IV fluids IV antibiotics trend labs we will follow with examination recommendations thank you for let me participate in patient's care improving with medical management npo iv fluids iv abx trend labs afebrile, HD stable comfortable pain improved but still present no n/v/f/c +flatus +bm wbc resolved labs improved start clear liquid diet trail cont abx as pain improves and clinically improves will plan for transition to oral abx for dc abd exam improved afebrile, HD stable but today states feels a bit worse and wbc 12k repeat CT a/p ordered radiologist yesterday did not feel comfortable with drainage guided of abscess. discussed with patient. new radiologist on tuesday. he is afebrile, HD stable, looks okay, pain resolved. does have a wbc given clinically stable recommend second opinion radiology tuesday. if unable will proceed with surgery tuesday which would be second to radiological drainage as morbidity greater with surgery given clinical situation Celestine Joya Jul 20, 2020 10:46
--- NOTE | 2020-07-20 11:49 | Hematology/Onc Progress Note ---
Assessment/Plan Assessment/Plan Assessment/Plan Assessment/Plan: ac appendticitis with perforation , clinically imroving with medical tx, facial injury nose fracture ct of abdo abscess regular diet conserative tx iv abx wbc down dw surgery dw with charge nurse Subjective HEENT: Denies: no symptoms, eye pain, blurred vision, tearing, double vision, ear pain, ear discharge, nose pain, nose congestion, throat pain, throat swelling, mouth pain, mouth swelling, other Cardiovascular: Denies: no symptoms, chest pain, edema, irregular heart rate, lightheadedness, palpitations, syncope, other Genitourinary: Denies: no symptoms, burning, discharge, frequency, flank pain, hematuria, incontinence, pain, urgency, other Neurologic/Psychiatric: Denies: no symptoms, anxiety, depressed, emotional problems, headache, numbness, paresthesia, pre-existing deficit, seizure, tingling, tremors, weakness, other Endocrine: Denies: no symptoms, excessive sweating, flushing, intolerance to cold, intolerance to heat, increased hunger, increased thirst, increased urine, unexplained weight gain, unexplained weight loss, other Hematologic/Lymphatic: Denies: no symptoms, anemia, easy bleeding, easy bruising, adenopathy, other Allergies: Coded Allergies: No Known Allergies (Unverified , 07/11/20) Subjective 07/20 for ir drainage tomorrow of possible or, covering Im Objective Objective Current Medications Medications (Trade) Dose Ordered Sig/Sveta Route PRN Reason Start Time Stop Time Status Last Admin Dose Admin Acetaminophen (Tylenol) 650 mg Q4H PRN ORAL Temp >100.5 07/12/20 10:15 08/11/20 10:14 Acetaminophen (Tylenol) 650 mg Q4H PRN RECTAL FEVER T>100.5 07/13/20 21:15 08/12/20 21:14 Al Hydroxide/Mg Hydroxide (Mylanta II) 30 ml Q6H PRN ORAL dyspepsia 07/12/20 10:15 08/11/20 10:14 Dextrose 1,000 ml @ 75 mls/hr [id number] IV 07/17/20 19:15 08/16/20 19:14 07/19/20 23:33 Dextrose (Dextrose 50%) 25 ml Q30M PRN IV Hypoglycemia 07/12/20 10:15 10/10/20 10:14 Dextrose (Dextrose 50%) 50 ml Q30M PRN IV Hypoglycemia 07/12/20 10:15 10/10/20 10:14 Diphenhydramine HCl (Benadryl) 25 mg Q6H PRN ORAL Itching/Pruritis 07/12/20 10:15 08/11/20 10:14 Famotidine (Pepcid I.v.) 20 mg Q12HR IVP 07/12/20 21:00 08/11/20 20:59 07/20/20 07:59 Heparin Sodium (Porcine) (Heparin 5000 units/ml) 5,000 units EVERY 12 HOURS SUBQ 07/12/20 21:00 08/26/20 20:59 07/20/20 08:01 Lidocaine HCl (Xylocaine 1% 30ml) 30 ml ONCE INJ 07/18/20 10:15 07/21/20 23:59 Morphine Sulfate (Morphine Sulfate) 2 mg Q3H PRN IVP Moderate Pain (Pain Scale 4-6) 07/19/20 21:00 07/26/20 20:59 07/19/20 21:10 Morphine Sulfate (Morphine Sulfate) 4 mg Q3H PRN IVP Severe Pain (Pain Scale 7-10) 07/19/20 21:00 07/26/20 20:59 Ondansetron HCl (Zofran) 4 mg Q6H PRN IVP Nausea & Vomiting 07/12/20 06:45 08/11/20 06:44 Piperacillin Sod/ Tazobactam Sod 3.375 gm/Sodium Chloride 110 ml @ 27.5 mls/hr Q8HR@0000,0800,1600 IVPB 07/12/20 08:00 07/26/20 23:59 07/20/20 08:00 Last 24 Hour Vital Signs Date Time Temp Pulse Resp B/P (MAP) Pulse Ox O2 Delivery O2 Flow Rate FiO2 07/20/20 09:00 Room Air 07/20/20 08:00 97.6 65 20 117/76 (90) 95 07/20/20 04:00 98.2 70 16 132/75 (94) 99 07/20/20 00:00 98.4 78 16 127/81 (96) 99 07/19/20 21:00 Room Air 07/19/20 20:00 98.6 74 16 130/78 (95) 100 07/19/20 16:00 97.7 69 18 121/78 (92) 97 07/19/20 12:00 98.5 71 18 123/68 (86) 95 07/19/20 09:00 Room Air 07/19/20 08:00 98.0 80 18 118/82 (94) 95 07/19/20 04:00 98.2 79 16 127/70 (89) 96 07/19/20 00:00 98.4 71 16 134/65 (88) 95 07/18/20 21:00 Room Air 07/18/20 20:00 98.1 76 16 131/68 (89) 96 07/18/20 16:00 98.2 75 18 120/75 (90) 95 07/18/20 12:00 98.5 77 18 126/78 (94) 94 Intake and Output 07/19/20 07/20/20 19:00 07:00 Intake Total 1637.5 ml 927.5 ml Output Total 200 ml Balance 1437.5 ml 927.5 ml Intake Oral 600 ml 360 ml IV Total 1037.5 ml 567.5 ml Output Urine Total 200 ml # Voids 2 Labs Test 07/19/20 05:50 07/20/20 05:39 White Blood Count 17.4 K/UL (4.8-10.8) 18.9 K/UL (4.8-10.8) Red Blood Count 4.87 M/UL (4.70-6.10) 4.46 M/UL (4.70-6.10) Hemoglobin 14.5 G/DL (14.2-18.0) 13.6 G/DL (14.2-18.0) Hematocrit 42.0 % (42.0-52.0) 39.0 % (42.0-52.0) Mean Corpuscular Volume 86 FL (80-99) 87 FL (80-99) Mean Corpuscular Hemoglobin 29.8 PG (27.0-31.0) 30.6 PG (27.0-31.0) Mean Corpuscular Hemoglobin Concent 34.5 G/DL (32.0-36.0) 35.0 G/DL (32.0-36.0) Red Cell Distribution Width 11.3 % (11.6-14.8) 11.1 % (11.6-14.8) Platelet Count 407 K/UL (150-450) 399 K/UL (150-450) Mean Platelet Volume 6.1 FL (6.5-10.1) 6.4 FL (6.5-10.1) Neutrophils (%) (Auto) 80.7 % (45.0-75.0) % (45.0-75.0) Lymphocytes (%) (Auto) 11.0 % (20.0-45.0) % (20.0-45.0) Monocytes (%) (Auto) 6.9 % (1.0-10.0) % (1.0-10.0) Eosinophils (%) (Auto) 1.0 % (0.0-3.0) % (0.0-3.0) Basophils (%) (Auto) 0.4 % (0.0-2.0) % (0.0-2.0) Sodium Level 137 MMOL/L (136-145) Potassium Level 3.3 MMOL/L (3.5-5.1) Chloride Level 101 MMOL/L (98-107) Carbon Dioxide Level 25 MMOL/L (21-32) Anion Gap 12 mmol/L (5-15) Blood Urea Nitrogen 8 mg/dL (7-18) Creatinine 0.9 MG/DL (0.55-1.30) Estimat Glomerular Filtration Rate > 60 mL/min (>60) Glucose Level 104 MG/DL (74-106) Calcium Level 9.1 MG/DL (8.5-10.1) Total Bilirubin 0.4 MG/DL (0.2-1.0) Aspartate Amino Transf (AST/SGOT) 30 U/L (15-37) Alanine Aminotransferase (ALT/SGPT) 47 U/L (12-78) Alkaline Phosphatase 69 U/L (46-116) Total Protein 7.4 G/DL (6.4-8.2) Albumin 2.4 G/DL (3.4-5.0) Globulin 5.0 g/dL Albumin/Globulin Ratio 0.5 (1.0-2.7) Differential Total Cells Counted 100 Neutrophils % (Manual) 73 % (45-75) Lymphocytes % (Manual) 10 % (20-45) Monocytes % (Manual) 9 % (1-10) Eosinophils % (Manual) 1 % (0-3) Basophils % (Manual) 0 % (0-2) Myelocytes % 2 % (0-0) Band Neutrophils 5 % (0-8) Platelet Estimate Adequate Platelet Morphology Normal Red Blood Cell Morphology Normal C-Reactive Protein, Quantitative 18.1 mg/dL (0.00-0.90) Height (Feet): 5 Height (Inches): 6.00 Weight (Pounds): 188 Objective General Appearance: alert EENT: PERRL/EOMI Neck: supple Cardiovascular: regular rhythm Respiratory/Chest: chest wall non-tender Abdomen: soft, tender Danis Cochran MD Jul 20, 2020 11:49
--- NOTE | 2020-07-20 19:25 | NUR ---
NURSE HAND-OFF: Important Events on Shift:[none] Patient Status: stable Diet: NPO at MN Pending Orders: s Pending Results/Labs: Pending MD notification: Latest Vital Signs: Temperature 98.3 , Pulse 62 , B/P 111 /72 , Respiratory Rate 21 , O2 SAT 96 , Room Air, O2 Flow Rate . Vital Sign Comment: stable Latest Kennedy Fall Score: 45 Fall Risk: High Risk Safety Measures: Call light Within Reach, Bed Alarm Zone 3, Side Rails Side Rails x2, Bed position Low and Locked. Fall Precautions: Patient Fall Education Report given to Dipak MUHAMMAD.
--- NOTE | 2020-07-20 19:37 | NUR ---
NURSE NOTES: Patient in bed, awake, alert x 4. Khmer speaking. Kept clean and comfortable. Bed in low and locked position. No IV site. Will attempt to reinsert.Provided safe environment. Abdomen is soft , slight pain. Patient aware to be NPO at midnight. Respiration is even and unlabroed. Call light is at bedside. Will continue plan of care.
[2020-07-21] VITALS (13 sets, daily range): BP systolic 106–155; BP diastolic 67–107
--- NOTE | 2020-07-21 06:28 | Hematology/Onc Progress Note ---
Assessment/Plan Assessment/Plan leukocytosis likely related to appendicitis anemia of hemodilution, monitoring ac appendticitis with perforation , clinically imroving with medical tx, facial injury nose fracture ct of abdo abscess regular diet conserative tx iv abx surgical intervention prn Subjective HEENT: Denies: no symptoms, eye pain, blurred vision, tearing, double vision, ear pain, ear discharge, nose pain, nose congestion, throat pain, throat swelling, mouth pain, mouth swelling, other Cardiovascular: Denies: no symptoms, chest pain, edema, irregular heart rate, lightheadedness, palpitations, syncope, other Respiratory: Denies: no symptoms, cough, shortness of breath, SOB with excertion, SOB at rest, sputum, wheezing, other Gastrointestinal/Abdominal: Denies: no symptoms, abdomen distended, abdominal pain, black stools, tarry stools, blood in stool, constipated, diarrhea, difficulty swallowing, nausea, poor appetite, poor fluid intake, rectal bleeding, vomiting, other Genitourinary: Denies: no symptoms, burning, discharge, frequency, flank pain, hematuria, incontinence, pain, urgency, other Neurologic/Psychiatric: Denies: no symptoms, anxiety, depressed, emotional problems, headache, numbness, paresthesia, pre-existing deficit, seizure, tingling, tremors, weakness, other Endocrine: Denies: no symptoms, excessive sweating, flushing, intolerance to cold, intolerance to heat, increased hunger, increased thirst, increased urine, unexplained weight gain, unexplained weight loss, other Allergies: Coded Allergies: No Known Allergies (Unverified , 07/11/20) Subjective 07/20 for ir drainage tomorrow of possible or, covering Im 07/21 pending potential intervention, labs reviewed, coags noted Objective Objective Current Medications Medications (Trade) Dose Ordered Sig/Sveta Route PRN Reason Start Time Stop Time Status Last Admin Dose Admin Acetaminophen (Tylenol) 650 mg Q4H PRN ORAL Temp >100.5 07/12/20 10:15 08/11/20 10:14 Acetaminophen (Tylenol) 650 mg Q4H PRN RECTAL FEVER T>100.5 07/13/20 21:15 08/12/20 21:14 Al Hydroxide/Mg Hydroxide (Mylanta II) 30 ml Q6H PRN ORAL dyspepsia 07/12/20 10:15 08/11/20 10:14 Dextrose 1,000 ml @ 75 mls/hr [id number] IV 07/17/20 19:15 08/16/20 19:14 07/20/20 23:33 Dextrose (Dextrose 50%) 25 ml Q30M PRN IV Hypoglycemia 07/12/20 10:15 10/10/20 10:14 Dextrose (Dextrose 50%) 50 ml Q30M PRN IV Hypoglycemia 07/12/20 10:15 10/10/20 10:14 Diphenhydramine HCl (Benadryl) 25 mg Q6H PRN ORAL Itching/Pruritis 07/12/20 10:15 08/11/20 10:14 Famotidine (Pepcid I.v.) 20 mg Q12HR IVP 07/12/20 21:00 08/11/20 20:59 07/20/20 21:50 Heparin Sodium (Porcine) (Heparin 5000 units/ml) 5,000 units EVERY 12 HOURS SUBQ 07/12/20 21:00 08/26/20 20:59 07/20/20 21:50 Lidocaine HCl (Xylocaine 1% 30ml) 30 ml ONCE INJ 07/18/20 10:15 07/21/20 23:59 Morphine Sulfate (Morphine Sulfate) 2 mg Q3H PRN IVP Moderate Pain (Pain Scale 4-6) 07/19/20 21:00 07/26/20 20:59 07/19/20 21:10 Morphine Sulfate (Morphine Sulfate) 4 mg Q3H PRN IVP Severe Pain (Pain Scale 7-10) 07/19/20 21:00 07/26/20 20:59 Ondansetron HCl (Zofran) 4 mg Q6H PRN IVP Nausea & Vomiting 07/12/20 06:45 08/11/20 06:44 Piperacillin Sod/ Tazobactam Sod 3.375 gm/Sodium Chloride 110 ml @ 27.5 mls/hr Q8HR@0000,0800,1600 IVPB 07/12/20 08:00 07/26/20 23:59 07/20/20 23:33 Last 24 Hour Vital Signs Date Time Temp Pulse Resp B/P (MAP) Pulse Ox O2 Delivery O2 Flow Rate FiO2 07/20/20 23:42 97.9 70 20 122/81 (95) 99 07/20/20 21:00 Room Air 07/20/20 20:00 98.0 66 20 115/77 (90) 98 07/20/20 16:00 98.3 62 21 111/72 (85) 07/20/20 12:00 97.7 70 20 127/77 (94) 96 07/20/20 09:00 Room Air 07/20/20 08:00 97.6 65 20 117/76 (90) 95 07/20/20 04:00 98.2 70 16 132/75 (94) 99 07/20/20 00:00 98.4 78 16 127/81 (96) 99 07/19/20 21:00 Room Air 07/19/20 20:00 98.6 74 16 130/78 (95) 100 07/19/20 16:00 97.7 69 18 121/78 (92) 97 07/19/20 12:00 98.5 71 18 123/68 (86) 95 07/19/20 09:00 Room Air 07/19/20 08:00 98.0 80 18 118/82 (94) 95 Intake and Output 07/20/20 07/21/20 19:00 07:00 Intake Total 480 ml Balance 480 ml Intake Oral 480 ml Labs Test 07/19/20 05:50 07/20/20 05:39 White Blood Count 17.4 K/UL (4.8-10.8) 18.9 K/UL (4.8-10.8) Red Blood Count 4.87 M/UL (4.70-6.10) 4.46 M/UL (4.70-6.10) Hemoglobin 14.5 G/DL (14.2-18.0) 13.6 G/DL (14.2-18.0) Hematocrit 42.0 % (42.0-52.0) 39.0 % (42.0-52.0) Mean Corpuscular Volume 86 FL (80-99) 87 FL (80-99) Mean Corpuscular Hemoglobin 29.8 PG (27.0-31.0) 30.6 PG (27.0-31.0) Mean Corpuscular Hemoglobin Concent 34.5 G/DL (32.0-36.0) 35.0 G/DL (32.0-36.0) Red Cell Distribution Width 11.3 % (11.6-14.8) 11.1 % (11.6-14.8) Platelet Count 407 K/UL (150-450) 399 K/UL (150-450) Mean Platelet Volume 6.1 FL (6.5-10.1) 6.4 FL (6.5-10.1) Neutrophils (%) (Auto) 80.7 % (45.0-75.0) % (45.0-75.0) Lymphocytes (%) (Auto) 11.0 % (20.0-45.0) % (20.0-45.0) Monocytes (%) (Auto) 6.9 % (1.0-10.0) % (1.0-10.0) Eosinophils (%) (Auto) 1.0 % (0.0-3.0) % (0.0-3.0) Basophils (%) (Auto) 0.4 % (0.0-2.0) % (0.0-2.0) Sodium Level 137 MMOL/L (136-145) Potassium Level 3.3 MMOL/L (3.5-5.1) Chloride Level 101 MMOL/L (98-107) Carbon Dioxide Level 25 MMOL/L (21-32) Anion Gap 12 mmol/L (5-15) Blood Urea Nitrogen 8 mg/dL (7-18) Creatinine 0.9 MG/DL (0.55-1.30) Estimat Glomerular Filtration Rate > 60 mL/min (>60) Glucose Level 104 MG/DL (74-106) Calcium Level 9.1 MG/DL (8.5-10.1) Total Bilirubin 0.4 MG/DL (0.2-1.0) Aspartate Amino Transf (AST/SGOT) 30 U/L (15-37) Alanine Aminotransferase (ALT/SGPT) 47 U/L (12-78) Alkaline Phosphatase 69 U/L (46-116) Total Protein 7.4 G/DL (6.4-8.2) Albumin 2.4 G/DL (3.4-5.0) Globulin 5.0 g/dL Albumin/Globulin Ratio 0.5 (1.0-2.7) Differential Total Cells Counted 100 Neutrophils % (Manual) 73 % (45-75) Lymphocytes % (Manual) 10 % (20-45) Monocytes % (Manual) 9 % (1-10) Eosinophils % (Manual) 1 % (0-3) Basophils % (Manual) 0 % (0-2) Myelocytes % 2 % (0-0) Band Neutrophils 5 % (0-8) Platelet Estimate Adequate Platelet Morphology Normal Red Blood Cell Morphology Normal C-Reactive Protein, Quantitative 18.1 mg/dL (0.00-0.90) Height (Feet): 5 Height (Inches): 6.00 Weight (Pounds): 188 Objective General Appearance: alert EENT: PERRL/EOMI Neck: supple Cardiovascular: regular rhythm Respiratory/Chest: chest wall non-tender Abdomen: soft, tender Danis Cochran MD Jul 21, 2020 06:28
--- NOTE | 2020-07-21 07:15 | NUR ---
NURSE HAND-OFF: Important Events on Shift: Surgery Patient Status: WNL Diet: NPO Pending Orders: Pending Results/Labs: Pending MD notification: Latest Vital Signs: Temperature 98.0 , Pulse 73 , B/P 125 /85 , Respiratory Rate 18 , O2 SAT 96 , Room Air, O2 Flow Rate . Vital Sign Comment: WNL Latest Kennedy Fall Score: 45 Fall Risk: High Risk Safety Measures: Call light Within Reach, Bed Alarm Zone 3, Side Rails Side Rails x2, Bed position Low and Locked. Fall Precautions: Patient Fall Education Report given to JB Mitchell.
--- NOTE | 2020-07-21 07:15 | NUR ---
NURSE NOTES: Handoff received from Dipak MUHAMMAD. PAtient is awake and alert, no signs of acute distress noted, no reports of pain at this time. LEft forearm IV is intact and running IVF as ordered. Bed is low and locked, side rails up x2, call light is within reach.
[2020-07-21 07:55] LABS: BASOPHILS % (AUTO) 0.7 % (0.0-2.0); EOSINOPHILS % (AUTO) 1.6 % (0.0-3.0); HEMATOCRIT 39.7 % (42.0-52.0); HEMOGLOBIN 13.9 G/DL (14.2-18.0); LYMPHOCYTES % (AUTO) 17.4 % (20.0-45.0); MEAN CORPUSCULAR VOLUME 87 FL (80-99); NEUTROPHILS % (AUTO) 72.2 % (45.0-75.0); PLATELET COUNT 453 K/UL (150-450); RED BLOOD COUNT 4.56 M/UL (4.70-6.10); RED CELL DISTRIBUTION WIDTH 11.4 % (11.6-14.8); WHITE BLOOD COUNT 10.6 K/UL (4.8-10.8)
[2020-07-21 08:06] LABS: ALANINE AMINOTRANSFERASE 47 U/L (12-78); ALBUMIN 2.6 G/DL (3.4-5.0); ALBUMIN/GLOBULIN RATIO 0.5 (1.0-2.7); ALKALINE PHOSPHATASE 61 U/L (46-116); ANION GAP 11 mmol/L (5-15); ASPARTATE AMINO TRANSFERASE 37 U/L (15-37); BILIRUBIN,TOTAL 0.2 MG/DL (0.2-1.0); BLOOD UREA NITROGEN 10 mg/dL (7-18); CARBON DIOXIDE 24 MMOL/L (21-32); CHLORIDE 103 MMOL/L (98-107); CREATININE 0.9 MG/DL (0.55-1.30); POTASSIUM 3.8 MMOL/L (3.5-5.1); SODIUM 138 MMOL/L (136-145)
[2020-07-21] MEDS: Heparin 5000 units/ml inj SUBQ SCH ×2 (08:44→20:16)
[2020-07-21] MEDS: Piperacillin/Tazobactam 3.375 GM in NS 110 ML IVPB SCH ×3 (08:55→23:39)
[2020-07-21] MEDS ORDERED: Omnipaque-300 100ml vial INJ PRN (10:00)
[2020-07-21] MEDS ORDERED: Gastrograffin 30ml ORAL PRN (10:00)
[2020-07-21] MEDS: Lidocaine 1% Plain 30 ml INJ SCH (10:15)
[2020-07-21] MEDS ORDERED: Sodium Bicarbonate 4% 2.4meq/5ml vial IV PRN (12:15)
[2020-07-21] MEDS ORDERED: Lidocaine 1% Plain 30 ml INJ PRN (12:17)
--- NOTE | 2020-07-21 12:19 | Surgery Progress Note ---
Surgery Progress Note Subjective Additional Comments Patient seen and examined bedside doing well feels better afebrile hemodynamically stable labs improved abdominal exam benign. Spoke with radiologist who was present today believes potential for drainage as well repeat CT ordered with oral and IV contrast to evaluate for clear window for drainage. I do long session with the patient and his niece at his request at the bedside as well she was on the phone I discussed the care plan and the rationale for repeat imaging the rationale for drain placement versus surgery surgery is much more morbidity and drainage significantly recommended if possible. If possible drainage today otherwise we will plan for surgical intervention Objective Last 24 Hour Vital Signs Date Time Temp Pulse Resp B/P (MAP) Pulse Ox O2 Delivery O2 Flow Rate FiO2 07/21/20 09:00 Room Air 07/21/20 08:00 97.3 56 18 121/75 (90) 98 07/21/20 04:00 98.0 73 18 125/85 (98) 96 07/20/20 23:42 97.9 70 20 122/81 (95) 99 07/20/20 21:00 Room Air 07/20/20 20:00 98.0 66 20 115/77 (90) 98 07/20/20 16:00 98.3 62 21 111/72 (85) I&O Intake and Output 07/20/20 07/21/20 19:00 07:00 Intake Total 480 ml 250 ml Output Total 600 ml Balance 480 ml -350 ml Intake Oral 480 ml 250 ml Output Urine Total 600 ml # Voids 2 Cardiovascular: RSR Respiratory: clear Abdomen: soft, flat, non-tender, present bowel sounds, non-distended Extremities: no edema, no tenderness, no cyanosis Laboratory Tests Test 07/21/20 07:08 White Blood Count 10.6 K/UL (4.8-10.8) Red Blood Count 4.56 M/UL (4.70-6.10) L Hemoglobin 13.9 G/DL (14.2-18.0) L Hematocrit 39.7 % (42.0-52.0) L Mean Corpuscular Volume 87 FL (80-99) Mean Corpuscular Hemoglobin 30.4 PG (27.0-31.0) Mean Corpuscular Hemoglobin Concent 34.9 G/DL (32.0-36.0) Red Cell Distribution Width 11.4 % (11.6-14.8) L Platelet Count 453 K/UL (150-450) H Mean Platelet Volume 6.6 FL (6.5-10.1) Neutrophils (%) (Auto) 72.2 % (45.0-75.0) Lymphocytes (%) (Auto) 17.4 % (20.0-45.0) L Monocytes (%) (Auto) 8.0 % (1.0-10.0) Eosinophils (%) (Auto) 1.6 % (0.0-3.0) Basophils (%) (Auto) 0.7 % (0.0-2.0) Prothrombin Time 11.4 SEC (9.30-11.50) Prothromb Time International Ratio 1.0 (0.9-1.1) Activated Partial Thromboplast Time 29 SEC (23-33) Sodium Level 138 MMOL/L (136-145) Potassium Level 3.8 MMOL/L (3.5-5.1) Chloride Level 103 MMOL/L (98-107) Carbon Dioxide Level 24 MMOL/L (21-32) Anion Gap 11 mmol/L (5-15) Blood Urea Nitrogen 10 mg/dL (7-18) Creatinine 0.9 MG/DL (0.55-1.30) Estimat Glomerular Filtration Rate > 60 mL/min (>60) Glucose Level 104 MG/DL (74-106) Calcium Level 9.0 MG/DL (8.5-10.1) Total Bilirubin 0.2 MG/DL (0.2-1.0) Aspartate Amino Transf (AST/SGOT) 37 U/L (15-37) Alanine Aminotransferase (ALT/SGPT) 47 U/L (12-78) Alkaline Phosphatase 61 U/L (46-116) Total Protein 7.6 G/DL (6.4-8.2) Albumin 2.6 G/DL (3.4-5.0) L Globulin 5.0 g/dL Albumin/Globulin Ratio 0.5 (1.0-2.7) L Plan Problems: (1) Dehydration (2) Hyperbilirubinemia (3) Nasal fracture (4) Facial contusion (5) Acute perforated appendicitis Assessment & Plan: 44-year-old male acute perforated appendicitis no abscess. Some mild bubbles of free air likely from the perforation. Abdominal exam with right lower quadrant tenderness mild distention no peritonitis. Leukocytosis dehydration. Given above will initiate nonoperative medical management acute perforated appendicitis. If improving will continue with course. Otherwise will need to go to operating room for exploration. Long session had at the patient's bedside in regards to findings and care plan. Patient expressed understanding. N.p.o. IV fluids IV antibiotics trend labs we will follow with examination recommendations thank you for let me participate in patient's care improving with medical management npo iv fluids iv abx trend labs afebrile, HD stable comfortable pain improved but still present no n/v/f/c +flatus +bm wbc resolved labs improved start clear liquid diet trail cont abx as pain improves and clinically improves will plan for transition to oral abx for dc abd exam improved afebrile, HD stable but today states feels a bit worse and wbc 12k repeat CT a/p ordered radiologist yesterday did not feel comfortable with drainage guided of abscess. discussed with patient. new radiologist on tuesday. he is afebrile, HD stable, looks okay, pain resolved. does have a wbc given clinically stable recommend second opinion radiology tuesday. if unable will proceed with surgery tuesday which would be second to radiological drainage as morbidity greater with surgery given clinical situation plan repeat CT today possible drain discussed with radiology discussed with patient and family at his request if not possible for drain will plan surgery Celestine Joya Jul 21, 2020 12:19
--- NOTE | 2020-07-21 12:20 | NUR ---
NURSE NOTES: PAtient left for abd CT scan in stable condition.
--- NOTE | 2020-07-21 15:30 | Pre-Procedure Note/Attestation ---
Pre-Procedure Note/Attestation Complete Prior to Procedure Planned Procedure: not applicable Procedure Narrative: abscess drainage Indications for Procedure Pre-Operative Diagnosis: perforated appendicitis Attestation I attest that I discussed the nature of the procedure; its benefits; risks and complications; and alternatives (and the risks and benefits of such alternatives), prior to the procedure, with the patient (or the patient's legal termite control representative). I attest that, if there was a reasonable possibility of needing a blood transfusion, the patient (or the patient's legal termite control representative) was given the [facility] standardized written summary, pursuant to the [place] Blood Safety Act ([place] Health and Safety Code # 1645, as amended). I attest that I re-evaluated the patient just prior to the surgery and that there has been no change in the patient's H&P, except as documented below: Jonathan Andres MD Jul 21, 2020 15:30
--- NOTE | 2020-07-21 15:31 | Brief Operative Note ---
Immediate Post Operative Note Operative Note Pre-op Diagnosis: perforated appendicitis Procedure: CT guided drainage Surgeon: Doug Gutierrez Anesthesia: local Specimen: yes - 60 ml pus sent to lab Complications: none Fluids: none Drains: other - 8 F pigtail Implant(s) used?: No Jonathan Gutierrez MD Jul 21, 2020 15:31
[2020-07-21] MEDS: Morphine Sulfate 2mg/ml Inj(IV/IM USE ONLY) IVP PRN ×2 (15:38→18:45)
--- NOTE | 2020-07-21 16:41 | General Progress Note ---
Subjective Allergies: Coded Allergies: No Known Allergies (Unverified , 07/11/20) Subjective awake abdo pain better s/p abscess drain clear liquid diet abdo pain improving Objective Last 24 Hour Vital Signs Date Time Temp Pulse Resp B/P (MAP) Pulse Ox O2 Delivery O2 Flow Rate FiO2 07/21/20 15:45 98.1 57 18 145/91 (109) 98 07/21/20 15:15 64 155/107 (123) 98 07/21/20 15:10 60 135/91 (106) 98 07/21/20 15:05 56 144/81 (102) 98 07/21/20 15:00 57 130/74 (92) 98 07/21/20 14:55 55 134/81 (98) 98 07/21/20 14:50 58 144/76 (98) 99 07/21/20 14:45 56 129/81 (97) 98 07/21/20 14:40 60 142/92 (109) 99 07/21/20 12:00 97.9 57 18 121/76 (91) 97 07/21/20 09:00 Room Air 07/21/20 08:00 97.3 56 18 121/75 (90) 98 07/21/20 04:00 98.0 73 18 125/85 (98) 96 07/20/20 23:42 97.9 70 20 122/81 (95) 99 07/20/20 21:00 Room Air 07/20/20 20:00 98.0 66 20 115/77 (90) 98 Intake and Output 07/20/20 07/21/20 19:00 07:00 Intake Total 480 ml 250 ml Output Total 600 ml Balance 480 ml -350 ml Intake Oral 480 ml 250 ml Output Urine Total 600 ml # Voids 2 Laboratory Tests 07/21/20 07:08: White Blood Count 10.6, Red Blood Count 4.56L, Hemoglobin 13.9L, Hematocrit 39.7L, Mean Corpuscular Volume 87, Mean Corpuscular Hemoglobin 30.4, Mean Corpuscular Hemoglobin Concent 34.9, Red Cell Distribution Width 11.4L, Platelet Count 453H, Mean Platelet Volume 6.6, Neutrophils (%) (Auto) 72.2, Lymphocytes (%) (Auto) 17.4L, Monocytes (%) (Auto) 8.0, Eosinophils (%) (Auto) 1.6, Basophils (%) (Auto) 0.7, Prothrombin Time 11.4, Prothromb Time International Ratio 1.0, Activated Partial Thromboplast Time 29, Sodium Level 138, Potassium Level 3.8, Chloride Level 103, Carbon Dioxide Level 24, Anion Gap 11, Blood Urea Nitrogen 10, Creatinine 0.9, Estimat Glomerular Filtration Rate > 60, Glucose Level 104, Calcium Level 9.0, Total Bilirubin 0.2, Aspartate Amino Transf (AST/SGOT) 37, Alanine Aminotransferase (ALT/SGPT) 47, Alkaline Phosphatase 61, Total Protein 7.6, Albumin 2.6L, Globulin 5.0, Albumin/Globulin Ratio 0.5L Height (Feet): 5 Height (Inches): 6.00 Weight (Pounds): 188 General Appearance: alert EENT: PERRL/EOMI Neck: normal alignment Cardiovascular: regular rhythm Respiratory/Chest: lungs clear Abdomen: soft, tender Extremities: normal range of motion Assessment/Plan Assessment/Plan: ac appendticitis with perforation s/p drain clinically imroving with medical tx, facial injury nose fracture ct of abdo abscess regular diet conserative tx iv abx wbc down dw surgery dw with charge nurse dc plan home by clearence of surgery Eulogio Toth MD Jul 21, 2020 16:41
--- NOTE | 2020-07-21 19:10 | NUR ---
NURSE NOTES: Received report from JB Ling. Pt is in bed, A&Ox4, has abdominal pain at times due to the drainage done today. Call light within reach, side rails up x2, bed locked and in lowest position. Will continue to monitor.
[2020-07-22] VITALS: BP 117/78
[2020-07-22 04:00] VITALS: BP 127/73
--- NOTE | 2020-07-22 06:39 | Hematology/Onc Progress Note ---
Assessment/Plan Assessment/Plan leukocytosis likely related to appendicitis thrombocytosis likely reactive process anemia of hemodilution, monitoring ac appendticitis with perforation , clinically imroving with medical tx, facial injury nose fracture ct of abdo abscess drain is placed regular diet conserative tx iv abx surgical intervention prn Subjective HEENT: Denies: no symptoms, eye pain, blurred vision, tearing, double vision, ear pain, ear discharge, nose pain, nose congestion, throat pain, throat swelling, mouth pain, mouth swelling, other Cardiovascular: Denies: no symptoms, chest pain, edema, irregular heart rate, lightheadedness, palpitations, syncope, other Respiratory: Denies: no symptoms, cough, shortness of breath, SOB with excertion, SOB at rest, sputum, wheezing, other Gastrointestinal/Abdominal: Denies: no symptoms, abdomen distended, abdominal pain, black stools, tarry stools, blood in stool, constipated, diarrhea, difficulty swallowing, nausea, poor appetite, poor fluid intake, rectal bleeding, vomiting, other Genitourinary: Denies: no symptoms, burning, discharge, frequency, flank pain, hematuria, incontinence, pain, urgency, other Neurologic/Psychiatric: Denies: no symptoms, anxiety, depressed, emotional problems, headache, numbness, paresthesia, pre-existing deficit, seizure, tingling, tremors, weakness, other Endocrine: Denies: no symptoms, excessive sweating, flushing, intolerance to cold, intolerance to heat, increased hunger, increased thirst, increased urine, unexplained weight gain, unexplained weight loss, other Hematologic/Lymphatic: Denies: no symptoms, anemia, easy bleeding, easy bruising, adenopathy, other Allergies: Coded Allergies: No Known Allergies (Unverified , 07/11/20) Subjective 07/20 for ir drainage tomorrow of possible or, covering Im 07/21 pending potential intervention, labs reviewed, coags noted 07/22 with abd drain in place, some pain is noted Objective Objective Current Medications Medications (Trade) Dose Ordered Sig/Sveta Route PRN Reason Start Time Stop Time Status Last Admin Dose Admin Acetaminophen (Tylenol) 650 mg Q4H PRN ORAL Temp >100.5 07/12/20 10:15 08/11/20 10:14 Acetaminophen (Tylenol) 650 mg Q4H PRN RECTAL FEVER T>100.5 07/13/20 21:15 08/12/20 21:14 Al Hydroxide/Mg Hydroxide (Mylanta II) 30 ml Q6H PRN ORAL dyspepsia 07/12/20 10:15 08/11/20 10:14 Barium Sulfate (Readi-Cat 2) 450 ml NOW PRN ORAL Radiology Procedure 07/21/20 10:00 07/23/20 09:59 Dextrose 1,000 ml @ 75 mls/hr [id number] IV 07/17/20 19:15 08/16/20 19:14 07/22/20 05:06 Dextrose (Dextrose 50%) 25 ml Q30M PRN IV Hypoglycemia 07/12/20 10:15 10/10/20 10:14 Dextrose (Dextrose 50%) 50 ml Q30M PRN IV Hypoglycemia 07/12/20 10:15 10/10/20 10:14 Diatrizoate Meglum/ Diatrizoate Sod (Gastrografin) 30 ml NOW PRN ORAL Radiology Procedure 07/21/20 10:00 07/23/20 09:59 Diphenhydramine HCl (Benadryl) 25 mg Q6H PRN ORAL Itching/Pruritis 07/12/20 10:15 08/11/20 10:14 Famotidine (Pepcid I.v.) 20 mg Q12HR IVP 07/12/20 21:00 08/11/20 20:59 07/21/20 20:12 Heparin Sodium (Porcine) (Heparin 5000 units/ml) 5,000 units EVERY 12 HOURS SUBQ 07/12/20 21:00 08/26/20 20:59 07/21/20 20:16 Iohexol (OMNIPAQUE-300 100ml) 100 ml NOW PRN INJ Radiology Procedure 07/21/20 10:00 07/23/20 09:59 Lidocaine HCl (Xylocaine 1% 30ml) 30 ml ONCE PRN INJ CATH PLACEMENT 07/21/20 12:17 07/23/20 23:59 Morphine Sulfate (Morphine Sulfate) 2 mg Q3H PRN IVP Moderate Pain (Pain Scale 4-6) 07/19/20 21:00 07/26/20 20:59 07/21/20 18:45 Morphine Sulfate (Morphine Sulfate) 4 mg Q3H PRN IVP Severe Pain (Pain Scale 7-10) 07/19/20 21:00 07/26/20 20:59 07/21/20 23:47 Ondansetron HCl (Zofran) 4 mg Q6H PRN IVP Nausea & Vomiting 07/12/20 06:45 08/11/20 06:44 Piperacillin Sod/ Tazobactam Sod 3.375 gm/Sodium Chloride 110 ml @ 27.5 mls/hr Q8HR@0000,0800,1600 IVPB 07/12/20 08:00 07/26/20 23:59 07/21/20 23:39 Sodium Bicarbonate (Sodium Bicarbonate 4%) 1 ml NOW PRN IV Radiology Procedure 07/21/20 12:15 07/23/20 12:14 Last 24 Hour Vital Signs Date Time Temp Pulse Resp B/P (MAP) Pulse Ox O2 Delivery O2 Flow Rate FiO2 07/22/20 04:00 98.7 79 20 127/73 (91) 96 07/22/20 00:00 98.9 79 18 117/78 (91) 96 07/21/20 21:00 Room Air 07/21/20 20:00 98.8 66 18 106/67 (80) 98 07/21/20 16:08 98.1 07/21/20 15:45 98.1 57 18 145/91 (109) 98 07/21/20 15:15 64 155/107 (123) 98 07/21/20 15:10 60 135/91 (106) 98 07/21/20 15:05 56 144/81 (102) 98 07/21/20 15:00 57 130/74 (92) 98 07/21/20 14:55 55 134/81 (98) 98 07/21/20 14:50 58 144/76 (98) 99 07/21/20 14:45 56 129/81 (97) 98 07/21/20 14:40 60 142/92 (109) 99 07/21/20 12:00 97.9 57 18 121/76 (91) 97 07/21/20 09:00 Room Air 07/21/20 08:00 97.3 56 18 121/75 (90) 98 07/21/20 04:00 98.0 73 18 125/85 (98) 96 07/20/20 23:42 97.9 70 20 122/81 (95) 99 07/20/20 21:00 Room Air 07/20/20 20:00 98.0 66 20 115/77 (90) 98 07/20/20 16:00 98.3 62 21 111/72 (85) 07/20/20 12:00 97.7 70 20 127/77 (94) 96 07/20/20 09:00 Room Air 07/20/20 08:00 97.6 65 20 117/76 (90) 95 Intake and Output 07/21/20 07/22/20 19:00 07:00 Output Total 200 ml 900 ml Balance -200 ml -900 ml Output Urine Total 200 ml 900 ml # Voids 2 3 Labs Test 07/20/20 05:39 07/21/20 07:08 07/22/20 06:09 White Blood Count 18.9 K/UL (4.8-10.8) 10.6 K/UL (4.8-10.8) Red Blood Count 4.46 M/UL (4.70-6.10) 4.56 M/UL (4.70-6.10) Hemoglobin 13.6 G/DL (14.2-18.0) 13.9 G/DL (14.2-18.0) Hematocrit 39.0 % (42.0-52.0) 39.7 % (42.0-52.0) Mean Corpuscular Volume 87 FL (80-99) 87 FL (80-99) Mean Corpuscular Hemoglobin 30.6 PG (27.0-31.0) 30.4 PG (27.0-31.0) Mean Corpuscular Hemoglobin Concent 35.0 G/DL (32.0-36.0) 34.9 G/DL (32.0-36.0) Red Cell Distribution Width 11.1 % (11.6-14.8) 11.4 % (11.6-14.8) Platelet Count 399 K/UL (150-450) 453 K/UL (150-450) Mean Platelet Volume 6.4 FL (6.5-10.1) 6.6 FL (6.5-10.1) Neutrophils (%) (Auto) % (45.0-75.0) 72.2 % (45.0-75.0) Lymphocytes (%) (Auto) % (20.0-45.0) 17.4 % (20.0-45.0) Monocytes (%) (Auto) % (1.0-10.0) 8.0 % (1.0-10.0) Eosinophils (%) (Auto) % (0.0-3.0) 1.6 % (0.0-3.0) Basophils (%) (Auto) % (0.0-2.0) 0.7 % (0.0-2.0) Differential Total Cells Counted 100 Neutrophils % (Manual) 73 % (45-75) Lymphocytes % (Manual) 10 % (20-45) Monocytes % (Manual) 9 % (1-10) Eosinophils % (Manual) 1 % (0-3) Basophils % (Manual) 0 % (0-2) Myelocytes % 2 % (0-0) Band Neutrophils 5 % (0-8) Platelet Estimate Adequate Platelet Morphology Normal Red Blood Cell Morphology Normal C-Reactive Protein, Quantitative 18.1 mg/dL (0.00-0.90) Prothrombin Time 11.4 SEC (9.30-11.50) Prothromb Time International Ratio 1.0 (0.9-1.1) Activated Partial Thromboplast Time 29 SEC (23-33) Sodium Level 138 MMOL/L (136-145) Potassium Level 3.8 MMOL/L (3.5-5.1) Chloride Level 103 MMOL/L (98-107) Carbon Dioxide Level 24 MMOL/L (21-32) Anion Gap 11 mmol/L (5-15) Blood Urea Nitrogen 10 mg/dL (7-18) Creatinine 0.9 MG/DL (0.55-1.30) Estimat Glomerular Filtration Rate > 60 mL/min (>60) Glucose Level 104 MG/DL (74-106) Calcium Level 9.0 MG/DL (8.5-10.1) Total Bilirubin 0.2 MG/DL (0.2-1.0) Aspartate Amino Transf (AST/SGOT) 37 U/L (15-37) Alanine Aminotransferase (ALT/SGPT) 47 U/L (12-78) Alkaline Phosphatase 61 U/L (46-116) Total Protein 7.6 G/DL (6.4-8.2) Albumin 2.6 G/DL (3.4-5.0) Globulin 5.0 g/dL Albumin/Globulin Ratio 0.5 (1.0-2.7) Height (Feet): 5 Height (Inches): 6.00 Weight (Pounds): 188 Objective General Appearance: alert EENT: PERRL/EOMI Neck: supple Cardiovascular: regular rhythm Respiratory/Chest: chest wall non-tender Abdomen: soft, tender +=drain Danis Mora MD Jul 22, 2020 06:39
[2020-07-22 06:41] LABS: BASOPHILS % (AUTO) 0.5 % (0.0-2.0); HEMATOCRIT 40.1 % (42.0-52.0); HEMOGLOBIN 13.9 G/DL (14.2-18.0); LYMPHOCYTES % (AUTO) 15.1 % (20.0-45.0); MEAN CORPUSCULAR VOLUME 87 FL (80-99); NEUTROPHILS % (AUTO) 73.3 % (45.0-75.0); PLATELET COUNT 467 K/UL (150-450); RED BLOOD COUNT 4.62 M/UL (4.70-6.10); WHITE BLOOD COUNT 10.3 K/UL (4.8-10.8)
[2020-07-22 06:56] LABS: ANION GAP 8 mmol/L (5-15); BLOOD UREA NITROGEN 7 mg/dL (7-18); CALCIUM 9.4 MG/DL (8.5-10.1); CARBON DIOXIDE 28 MMOL/L (21-32); CHLORIDE 103 MMOL/L (98-107); CREATININE 0.9 MG/DL (0.55-1.30); POTASSIUM 3.6 MMOL/L (3.5-5.1); SODIUM 139 MMOL/L (136-145)
--- NOTE | 2020-07-22 07:04 | NUR ---
NURSE HAND-OFF: Important Events on Shift: Pain management x1 Patient Status: Calm Diet: clear liquid Pending Orders: Pending Results/Labs: Pending MD notification: Latest Vital Signs: Temperature 98.7 , Pulse 79 , B/P 127 /73 , Respiratory Rate 20 , O2 SAT 96 , Room Air, O2 Flow Rate . Vital Sign Comment: VSS Latest Kennedy Fall Score: 45 Fall Risk: High Risk Safety Measures: Call light Within Reach, Bed Alarm Zone 3, Side Rails Side Rails x2, Bed position Low and Locked. Fall Precautions: Patient Fall Education Report given to JB Cramer.
--- NOTE | 2020-07-22 07:45 | NUR ---
NURSE NOTES: received from JB Regalado. Patient is awake and alert, no signs of acute distress noted, no c/o pain at this time. Left forearm IV intact and running IVF as ordered. Bed is low and locked, side rails up x2, call light is within reach.
[2020-07-22 08:00] VITALS: BP 126/82
[2020-07-22] MEDS: Piperacillin/Tazobactam 3.375 GM in NS 110 ML IVPB SCH ×3 (08:15→23:49)
[2020-07-22] MEDS: Heparin 5000 units/ml inj SUBQ SCH ×2 (08:15→21:14)
--- NOTE | 2020-07-22 09:55 | Diagnostic Imaging Report ---
Clinical Indication: History of perforated appendicitis with abscess formation, abdominal pain Technique: Patient given oral contrast IV administration nonionic contrast. Venous phase spiral acquisition obtained through the abdomen and pelvis. Multiplanar reconstructions were generated. Total dose length product 379 mGycm. CTDIvol(s) 6 mGy. Dose reduction achieved using automated exposure control Comparison: 07/17/2020 Findings: Deep midline pelvic periappendiceal abscess, containing gas and fluid, and adjacent enlarged inflamed appendix are again demonstrated, size of the abscess minimally increased from the previous study. Inflammatory changes in the mesenteric root are similar to the previous exam where it There is mild thickening of the sigmoid colon, likely reactive related to the adjacent inflammation. No evidence of diverticulosis or diverticulitis. No small bowel distention or small bowel wall thickening. No free intraperitoneal gas demonstrated. The liver demonstrates a very subtle area of low-attenuation in segment 8, not clearly evident previously. The gallbladder, bile ducts, pancreas, spleen, adrenals, kidneys are unremarkable. No retroperitoneal or mesenteric mass or adenopathy. No pelvic mass or adenopathy. The included lung bases demonstrate abundant areas of atelectasis and possibly some consolidation. Small bilateral pleural effusions appear slightly improved. Calcifications are seen along the right pleural surface. Impression: Periappendiceal abscess, minimally increased in size from prior study of 07/17/2020, with associated inflamed appendix again demonstrated. Very subtle area of low-attenuation in segment 8 of liver, not definitely identified previously. Possibly artifactual, developing small area of inflammation also possible. Recommend correlation with clinical findings and continued follow-up surveillance. Persistent bilateral basilar pulmonary parenchymal atelectasis and solid lesion. Slightly improved small bilateral pleural effusions Other findings as noted The CT scanner at [facility] is accredited by the [employer] and the scans are performed using protocols designed to limit radiation exposure to as low as reasonably achievable to attain images of sufficient resolution adequate for diagnostic evaluation.
--- NOTE | 2020-07-22 11:52 | Surgery Progress Note ---
Surgery Progress Note Subjective Additional Comments Patient seen and examined bedside. Was unable to obtain IR drainage of abscess yesterday. Fluid drainage since identified. Feeling better no nausea vomiting fever chills. Labs okay. Drain in place and checked by myself this morning. Continue diet as tolerated. Continue antibiotics. Transition to oral antibiotics for discharge. Will likely discharge with drain follow-up in the office for drain removal. Objective Last 24 Hour Vital Signs Date Time Temp Pulse Resp B/P (MAP) Pulse Ox O2 Delivery O2 Flow Rate FiO2 07/22/20 09:00 Room Air 07/22/20 08:00 98.0 77 20 126/82 (97) 96 07/22/20 04:00 98.7 79 20 127/73 (91) 96 07/22/20 00:00 98.9 79 18 117/78 (91) 96 07/21/20 21:00 Room Air 07/21/20 20:00 98.8 66 18 106/67 (80) 98 07/21/20 16:08 98.1 07/21/20 15:45 98.1 57 18 145/91 (109) 98 07/21/20 15:15 64 155/107 (123) 98 07/21/20 15:10 60 135/91 (106) 98 07/21/20 15:05 56 144/81 (102) 98 07/21/20 15:00 57 130/74 (92) 98 07/21/20 14:55 55 134/81 (98) 98 07/21/20 14:50 58 144/76 (98) 99 07/21/20 14:45 56 129/81 (97) 98 07/21/20 14:40 60 142/92 (109) 99 07/21/20 12:00 97.9 57 18 121/76 (91) 97 I&O Intake and Output 07/21/20 07/22/20 19:00 07:00 Output Total 200 ml 900 ml Balance -200 ml -900 ml Output Urine Total 200 ml 900 ml # Voids 2 3 Dressing: dry Wound: clean Drains: other Cardiovascular: RSR Respiratory: clear Abdomen: soft, flat, non-tender, present bowel sounds Extremities: no edema, no tenderness, no cyanosis Laboratory Tests Test 07/22/20 06:09 White Blood Count 10.3 K/UL (4.8-10.8) Red Blood Count 4.62 M/UL (4.70-6.10) L Hemoglobin 13.9 G/DL (14.2-18.0) L Hematocrit 40.1 % (42.0-52.0) L Mean Corpuscular Volume 87 FL (80-99) Mean Corpuscular Hemoglobin 30.0 PG (27.0-31.0) Mean Corpuscular Hemoglobin Concent 34.6 G/DL (32.0-36.0) Red Cell Distribution Width 11.0 % (11.6-14.8) L Platelet Count 467 K/UL (150-450) H Mean Platelet Volume 6.5 FL (6.5-10.1) Neutrophils (%) (Auto) 73.3 % (45.0-75.0) Lymphocytes (%) (Auto) 15.1 % (20.0-45.0) L Monocytes (%) (Auto) 10.0 % (1.0-10.0) Eosinophils (%) (Auto) 1.0 % (0.0-3.0) Basophils (%) (Auto) 0.5 % (0.0-2.0) Sodium Level 139 MMOL/L (136-145) Potassium Level 3.6 MMOL/L (3.5-5.1) Chloride Level 103 MMOL/L (98-107) Carbon Dioxide Level 28 MMOL/L (21-32) Anion Gap 8 mmol/L (5-15) Blood Urea Nitrogen 7 mg/dL (7-18) Creatinine 0.9 MG/DL (0.55-1.30) Estimat Glomerular Filtration Rate > 60 mL/min (>60) Glucose Level 107 MG/DL (74-106) H Calcium Level 9.4 MG/DL (8.5-10.1) Plan Problems: (1) Dehydration (2) Hyperbilirubinemia (3) Nasal fracture (4) Facial contusion (5) Acute perforated appendicitis Assessment & Plan: 44-year-old male acute perforated appendicitis no abscess. Some mild bubbles of free air likely from the perforation. Abdominal exam with right lower quadrant tenderness mild distention no peritonitis. Leukocytosis dehydration. Given above will initiate nonoperative medical management acute perforated appendicitis. If improving will continue with course. Otherwise will need to go to operating room for exploration. Long session had at the patient's bedside in regards to findings and care plan. Patient expressed understanding. N.p.o. IV fluids IV antibiotics trend labs we will follow with examination recommendations thank you for let me participate in patient's care improving with medical management npo iv fluids iv abx trend labs afebrile, HD stable comfortable pain improved but still present no n/v/f/c +flatus +bm wbc resolved labs improved start clear liquid diet trail cont abx as pain improves and clinically improves will plan for transition to oral abx for dc abd exam improved afebrile, HD stable but today states feels a bit worse and wbc 12k repeat CT a/p ordered radiologist yesterday did not feel comfortable with drainage guided of abscess. discussed with patient. new radiologist on tuesday. he is afebrile, HD stable, looks okay, pain resolved. does have a wbc given clinically stable recommend second opinion radiology tuesday. if unable will proceed with surgery tuesday which would be second to radiological drainage as morbidity greater with surgery given clinical situation plan repeat CT today possible drain discussed with radiology discussed with patient and family at his request if not possible for drain will plan surgery Was unable to obtain IR drainage of abscess yesterday. Fluid drainage since identified. Feeling better no nausea vomiting fever chills. Labs okay. Drain in place and checked by myself this morning. Continue diet as tolerated. Continue antibiotics. Transition to oral antibiotics for discharge. Will likely discharge with drain follow-up in the office for drain removal. Celestine Joya Jul 22, 2020 11:52
[2020-07-22 12:00] VITALS: BP 116/74
[2020-07-22] MEDS: HYDROcodone/Acetamin 5/325 tab ORAL PRN (12:13)
--- NOTE | 2020-07-22 14:49 | General Progress Note ---
Subjective Allergies: Coded Allergies: No Known Allergies (Unverified , 07/11/20) Subjective awake abdo pain better s/p abscess drain tolerating diet abdo pain improving Objective Last 24 Hour Vital Signs Date Time Temp Pulse Resp B/P (MAP) Pulse Ox O2 Delivery O2 Flow Rate FiO2 07/22/20 12:43 98.0 07/22/20 12:00 97.9 65 20 116/74 (88) 97 07/22/20 09:00 Room Air 07/22/20 08:00 98.0 77 20 126/82 (97) 96 07/22/20 04:00 98.7 79 20 127/73 (91) 96 07/22/20 00:00 98.9 79 18 117/78 (91) 96 07/21/20 21:00 Room Air 07/21/20 20:00 98.8 66 18 106/67 (80) 98 07/21/20 16:08 98.1 07/21/20 15:45 98.1 57 18 145/91 (109) 98 07/21/20 15:15 64 155/107 (123) 98 07/21/20 15:10 60 135/91 (106) 98 07/21/20 15:05 56 144/81 (102) 98 07/21/20 15:00 57 130/74 (92) 98 07/21/20 14:55 55 134/81 (98) 98 07/21/20 14:50 58 144/76 (98) 99 Intake and Output 07/21/20 07/22/20 19:00 07:00 Output Total 200 ml 900 ml Balance -200 ml -900 ml Output Urine Total 200 ml 900 ml # Voids 2 3 Laboratory Tests 07/22/20 06:09: White Blood Count 10.3, Red Blood Count 4.62L, Hemoglobin 13.9L, Hematocrit 40.1L, Mean Corpuscular Volume 87, Mean Corpuscular Hemoglobin 30.0, Mean Corpuscular Hemoglobin Concent 34.6, Red Cell Distribution Width 11.0L, Platelet Count 467H, Mean Platelet Volume 6.5, Neutrophils (%) (Auto) 73.3, Lymphocytes (%) (Auto) 15.1L, Monocytes (%) (Auto) 10.0, Eosinophils (%) (Auto) 1.0, Basophils (%) (Auto) 0.5, Sodium Level 139, Potassium Level 3.6, Chloride Level 103, Carbon Dioxide Level 28, Anion Gap 8, Blood Urea Nitrogen 7, Creatinine 0.9, Estimat Glomerular Filtration Rate > 60, Glucose Level 107H, Calcium Level 9.4 Height (Feet): 5 Height (Inches): 6.00 Weight (Pounds): 188 General Appearance: alert EENT: PERRL/EOMI Neck: supple Cardiovascular: regular rhythm Respiratory/Chest: normal breath sounds Abdomen: soft, tender Extremities: non-tender Assessment/Plan Assessment/Plan: ac appendticitis with perforation s/p drain clinically imroving with medical tx, facial injury nose fracture ct of abdo abscess regular diet conserative tx iv abx wbc down dw surgery dw with charge nurse dc plan home tomorrow by clearence of surgery Eulogio Toth MD Jul 22, 2020 14:49
--- NOTE | 2020-07-22 15:59 | Diagnostic Imaging Report ---
Indication: Periappendiceal abscess Technique: Informed consent obtained prior to commencement of the procedure. Risks, including but not limited to hemorrhage, infection discussed with patient, questions answered. He indicated his willingness to proceed. Prior imaging studies reviewed. Procedure timeout performed. Localizer acquisitions obtained through the area of interest in the lower abdomen/upper pelvis. Intended puncture site was sterilely prepped and draped. Local anesthesia with 1% lidocaine. Under CT guidance, a 21-gauge needle was carefully advanced into the targeted abscess, with incremental images obtained and taking care to avoid traversing any enteric structures. Subsequent images documented successful needle placement within the targeted abscess. 0.018 guidewire then inserted, followed by insertion of a 6 Afghan introducer assembly. This was used to introduce a 0.035 guidewire. Over this was passed a 8 Afghan pigtail drainage catheter. The guidewire was removed, and the pigtail was formed. Approximately 40 mm of pus then aspirated. A specimen was sent to lab for microbial analysis. Follow-up CT images obtained, demonstrating near complete evacuation of the targeted abscess. The catheter was placed to gravity drainage and fixed to the skin. The patient tolerated the procedure well, without immediate complication. Total dose length product 355 mGycm. CTDIvol(s) 4, 5 x 7 mGy. Radiation dose was minimized using automated exposure control Comparison: Reference made to CT scan of earlier the same day Findings: Intraprocedural images document satisfactory catheter placement Impression: Successful percutaneous drainage of periappendiceal abscess, under CT guidance, as described above The CT scanner at [facility] is accredited by the [employer] and the scans are performed using protocols designed to limit radiation exposure to as low as reasonably achievable to attain images of sufficient resolution adequate for diagnostic evaluation.
[2020-07-22 16:00] VITALS: BP 113/67
[2020-07-22] MEDS: Docusate 100mg cap ORAL SCH (17:14)
--- NOTE | 2020-07-22 19:30 | NUR ---
NURSE HAND-OFF: Important Events on Shift:[Pain management, start reg diet, no N/V, drain output 40cc sanguineous] Patient Status: [] Diet: [reg] Pending Orders: [] Pending Results/Labs:[] Pending MD notification:[] Latest Vital Signs: Temperature 98.3 , Pulse 60 , B/P 113 /67 , Respiratory Rate 20 , O2 SAT 97 , Room Air, O2 Flow Rate . Vital Sign Comment: [stable] Latest Kennedy Fall Score: 45 Fall Risk: High Risk Safety Measures: Call light Within Reach, Bed Alarm Zone 3, Side Rails Side Rails x2, Bed position Low and Locked. Fall Precautions: Patient Fall Education Report given to [JB Lee].
--- NOTE | 2020-07-22 19:31 | NUR ---
NURSE NOTES: Received patient in no apparent distress. A&OX4. IV site patent and intact. Uresil drain noted on abdomen, flushed with NS10cc. Bed in lowest position. Call light within reach. Will continue to monitor.
[2020-07-22 20:00] VITALS: BP 138/87
[2020-07-23] VITALS: BP 128/78
[2020-07-23 04:00] VITALS: BP 120/81
[2020-07-23] MEDS: HYDROcodone/Acetamin 5/325 tab ORAL PRN (04:02)
[2020-07-23 06:34] LABS: ANION GAP 11 mmol/L (5-15); BLOOD UREA NITROGEN 9 mg/dL (7-18); CALCIUM 9.5 MG/DL (8.5-10.1); CARBON DIOXIDE 25 MMOL/L (21-32); CHLORIDE 101 MMOL/L (98-107); CREATININE 0.9 MG/DL (0.55-1.30); SODIUM 137 MMOL/L (136-145)
[2020-07-23 06:39] LABS: BASOPHILS % (AUTO) 0.9 % (0.0-2.0); EOSINOPHILS % (AUTO) 0.2 % (0.0-3.0); HEMATOCRIT 41.1 % (42.0-52.0); HEMOGLOBIN 14.1 G/DL (14.2-18.0); LYMPHOCYTES % (AUTO) 20.2 % (20.0-45.0); MEAN CORPUSCULAR VOLUME 87 FL (80-99); NEUTROPHILS % (AUTO) 66.8 % (45.0-75.0); PLATELET COUNT 494 K/UL (150-450); RED BLOOD COUNT 4.72 M/UL (4.70-6.10); RED CELL DISTRIBUTION WIDTH 11.3 % (11.6-14.8); WHITE BLOOD COUNT 9.4 K/UL (4.8-10.8)
--- NOTE | 2020-07-23 06:50 | Hematology/Onc Progress Note ---
Assessment/Plan Assessment/Plan leukocytosis likely related to appendicitis thrombocytosis likely reactive process anemia of hemodilution, monitoring ac appendticitis with perforation , clinically imroving with medical tx, facial injury nose fracture ct of abdo abscess drain is placed regular diet conserative tx iv abx surgical intervention prn Subjective HEENT: Denies: no symptoms, eye pain, blurred vision, tearing, double vision, ear pain, ear discharge, nose pain, nose congestion, throat pain, throat swelling, mouth pain, mouth swelling, other Respiratory: Denies: no symptoms, cough, shortness of breath, SOB with excertion, SOB at rest, sputum, wheezing, other Gastrointestinal/Abdominal: Denies: no symptoms, abdomen distended, abdominal pain, black stools, tarry stools, blood in stool, constipated, diarrhea, difficulty swallowing, nausea, poor appetite, poor fluid intake, rectal bleeding, vomiting, other Genitourinary: Denies: no symptoms, burning, discharge, frequency, flank pain, hematuria, incontinence, pain, urgency, other Neurologic/Psychiatric: Denies: no symptoms, anxiety, depressed, emotional p roblems, headache, numbness, paresthesia, pre-existing deficit, seizure, tingling, tremors, weakness, other Allergies: Coded Allergies: No Known Allergies (Unverified , 07/11/20) Subjective 07/20 for ir drainage tomorrow of possible or, covering Im 07/21 pending potential intervention, labs reviewed, coags noted 07/22 with abd drain in place, some pain is noted / no distress, comfortable, labs noted, meds reviewed Objective Objective Current Medications Medications (Trade) Dose Ordered Sig/Sveta Route PRN Reason Start Time Stop Time Status Last Admin Dose Admin Acetaminophen (Tylenol) 650 mg Q4H PRN ORAL Temp >100.5 07/12/20 10:15 08/11/20 10:14 Acetaminophen/ Hydrocodone Bitart ([place] 5/325) 1 tab Q4H PRN ORAL Moderate Pain (Pain Scale 4-6) 07/22/20 12:00 07/29/20 11:59 07/23/20 04:02 Al Hydroxide/Mg Hydroxide (Mylanta II) 30 ml Q6H PRN ORAL dyspepsia 07/12/20 10:15 08/11/20 10:14 Diphenhydramine HCl (Benadryl) 25 mg Q6H PRN ORAL Itching/Pruritis 07/12/20 10:15 08/11/20 10:14 Docusate Sodium (Colace) 100 mg TWICE A DAY ORAL 07/22/20 18:00 08/21/20 17:59 07/22/20 17:14 Heparin Sodium (Porcine) (Heparin 5000 units/ml) 5,000 units EVERY 12 HOURS SUBQ 07/12/20 21:00 08/26/20 20:59 07/22/20 21:14 Ondansetron HCl (Zofran) 4 mg Q6H PRN IVP Nausea & Vomiting 07/12/20 06:45 08/11/20 06:44 Piperacillin Sod/ Tazobactam Sod 3.375 gm/Sodium Chloride 110 ml @ 27.5 mls/hr Q8HR@0000,0800,1600 IVPB 07/12/20 08:00 07/26/20 23:59 07/22/20 23:49 Last 24 Hour Vital Signs Date Time Temp Pulse Resp B/P (MAP) Pulse Ox O2 Delivery O2 Flow Rate FiO2 07/23/20 04:00 97.2 63 20 120/81 (94) 95 07/23/20 00:00 97.9 65 20 128/78 (95) 95 07/22/20 21:00 Room Air 07/22/20 20:00 97.9 61 20 138/87 (104) 97 07/22/20 16:00 98.3 60 20 113/67 (82) 97 07/22/20 12:43 98.0 07/22/20 12:00 97.9 65 20 116/74 (88) 97 07/22/20 09:00 Room Air 07/22/20 08:00 98.0 77 20 126/82 (97) 96 07/22/20 04:00 98.7 79 20 127/73 (91) 96 07/22/20 00:00 98.9 79 18 117/78 (91) 96 07/21/20 21:00 Room Air 07/21/20 20:00 98.8 66 18 106/67 (80) 98 07/21/20 16:08 98.1 07/21/20 15:45 98.1 57 18 145/91 (109) 98 07/21/20 15:15 64 155/107 (123) 98 07/21/20 15:10 60 135/91 (106) 98 07/21/20 15:05 56 144/81 (102) 98 07/21/20 15:00 57 130/74 (92) 98 07/21/20 14:55 55 134/81 (98) 98 07/21/20 14:50 58 144/76 (98) 99 07/21/20 14:45 56 129/81 (97) 98 07/21/20 14:40 60 142/92 (109) 99 07/21/20 12:00 97.9 57 18 121/76 (91) 97 07/21/20 09:00 Room Air 07/21/20 08:00 97.3 56 18 121/75 (90) 98 l Intake and Output 07/22/20 07/23/20 19:00 07:00 Intake Total 1070 ml 120.0 ml Output Total 1590 ml 524 ml Balance -520 ml -404.0 ml Intake Oral 1060 ml IV Total 110.0 ml Other 10 ml 10 ml Output Urine Total 1550 ml 500 ml Drainage Total 40 ml Other 24 ml Labs Test 07/21/20 07:08 07/22/20 06:09 07/23/20 05:57 White Blood Count 10.6 K/UL (4.8-10.8) 10.3 K/UL (4.8-10.8) 9.4 K/UL (4.8-10.8) Red Blood Count 4.56 M/UL (4.70-6.10) 4.62 M/UL (4.70-6.10) 4.72 M/UL (4.70-6.10) Hemoglobin 13.9 G/DL (14.2-18.0) 13.9 G/DL (14.2-18.0) 14.1 G/DL (14.2-18.0) Hematocrit 39.7 % (42.0-52.0) 40.1 % (42.0-52.0) 41.1 % (42.0-52.0) Mean Corpuscular Volume 87 FL (80-99) 87 FL (80-99) 87 FL (80-99) Mean Corpuscular Hemoglobin 30.4 PG (27.0-31.0) 30.0 PG (27.0-31.0) 29.7 PG (27.0-31.0) Mean Corpuscular Hemoglobin Concent 34.9 G/DL (32.0-36.0) 34.6 G/DL (32.0-36.0) 34.2 G/DL (32.0-36.0) Red Cell Distribution Width 11.4 % (11.6-14.8) 11.0 % (11.6-14.8) 11.3 % (11.6-14.8) Platelet Count 453 K/UL (150-450) 467 K/UL (150-450) 494 K/UL (150-450) Mean Platelet Volume 6.6 FL (6.5-10.1) 6.5 FL (6.5-10.1) 6.5 FL (6.5-10.1) Neutrophils (%) (Auto) 72.2 % (45.0-75.0) 73.3 % (45.0-75.0) 66.8 % (45.0-75.0) Lymphocytes (%) (Auto) 17.4 % (20.0-45.0) 15.1 % (20.0-45.0) 20.2 % (20.0-45.0) Monocytes (%) (Auto) 8.0 % (1.0-10.0) 10.0 % (1.0-10.0) 12.0 % (1.0-10.0) Eosinophils (%) (Auto) 1.6 % (0.0-3.0) 1.0 % (0.0-3.0) 0.2 % (0.0-3.0) Basophils (%) (Auto) 0.7 % (0.0-2.0) 0.5 % (0.0-2.0) 0.9 % (0.0-2.0) Prothrombin Time 11.4 SEC (9.30-11.50) Prothromb Time International Ratio 1.0 (0.9-1.1) Activated Partial Thromboplast Time 29 SEC (23-33) Sodium Level 138 MMOL/L (136-145) 139 MMOL/L (136-145) 137 MMOL/L (136-145) Potassium Level 3.8 MMOL/L (3.5-5.1) 3.6 MMOL/L (3.5-5.1) 4.0 MMOL/L (3.5-5.1) Chloride Level 103 MMOL/L (98-107) 103 MMOL/L (98-107) 101 MMOL/L (98-107) Carbon Dioxide Level 24 MMOL/L (21-32) 28 MMOL/L (21-32) 25 MMOL/L (21-32) Anion Gap 11 mmol/L (5-15) 8 mmol/L (5-15) 11 mmol/L (5-15) Blood Urea Nitrogen 10 mg/dL (7-18) 7 mg/dL (7-18) 9 mg/dL (7-18) Creatinine 0.9 MG/DL (0.55-1.30) 0.9 MG/DL (0.55-1.30) 0.9 MG/DL (0.55-1.30) Estimat Glomerular Filtration Rate > 60 mL/min (>60) > 60 mL/min (>60) > 60 mL/min (>60) Glucose Level 104 MG/DL (74-106) 107 MG/DL (74-106) 97 MG/DL (74-106) Calcium Level 9.0 MG/DL (8.5-10.1) 9.4 MG/DL (8.5-10.1) 9.5 MG/DL (8.5-10.1) Total Bilirubin 0.2 MG/DL (0.2-1.0) Aspartate Amino Transf (AST/SGOT) 37 U/L (15-37) Alanine Aminotransferase (ALT/SGPT) 47 U/L (12-78) Alkaline Phosphatase 61 U/L (46-116) Total Protein 7.6 G/DL (6.4-8.2) Albumin 2.6 G/DL (3.4-5.0) Globulin 5.0 g/dL Albumin/Globulin Ratio 0.5 (1.0-2.7) Height (Feet): 5 Height (Inches): 6.00 Weight (Pounds): 188 Objective General Appearance: alert EENT: PERRL/EOMI Neck: supple Cardiovascular: regular rhythm Respiratory/Chest: chest wall non-tender Abdomen: soft, tender +=drain rachel Danis Cochran MD Jul 23, 2020 06:50
--- NOTE | 2020-07-23 07:16 | NUR ---
NURSE HAND-OFF: Important Events on Shift: still c/o pain Patient Status: Diet: regular Pending Orders: Pending Results/Labs: Pending MD notification: Latest Vital Signs: Temperature 97.2 , Pulse 63 , B/P 120 /81 , Respiratory Rate 20 , O2 SAT 95 , Room Air, O2 Flow Rate . Vital Sign Comment: Latest Kennedy Fall Score: 45 Fall Risk: High Risk Safety Measures: Call light Within Reach, Bed Alarm Zone 1, Side Rails Side Rails x2, Bed position Low and Locked. Fall Precautions: Patient Fall Education Report given to Hilda MUHAMMAD.
--- NOTE | 2020-07-23 07:45 | NUR ---
NURSE NOTES: Received report from JB Lee. Patient A&OX4, ambulatory, [place] speaking, pt c/o pain but did not want pain medication at this time. IV site patent and intact. Uresil drain in place. Bed in lowest position. Call light within reach. Will continue to monitor.
[2020-07-23 08:00] VITALS: BP 109/70
[2020-07-23] MEDS: Piperacillin/Tazobactam 3.375 GM in NS 110 ML IVPB SCH (08:59)
[2020-07-23] MEDS: Docusate 100mg cap ORAL SCH (09:00)
[2020-07-23] MEDS: Heparin 5000 units/ml inj SUBQ SCH (09:03)
--- NOTE | 2020-07-23 10:00 | NUR ---
NURSE NOTES: Pt was seen by Dr. Joya and pt is clear to discharge from surgery standpoint. 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 Will follow up with primary doctor.
--- NOTE | 2020-07-23 11:00 | NUR ---
NURSE NOTES: Noted that pt changing cloths and stating that he will go home. but pt has to wait until family member finish work so he can be picked up. Rx faxed to [facility], will follow up.
[2020-07-23 12:00] VITALS: BP 118/80
--- NOTE | 2020-07-23 13:32 | Surgery Progress Note ---
Surgery Progress Note Subjective Additional Comments Patient seen and examined at bedside. Afebrile, hemodynamically stable, leukocytosis resolved labs much improved no nausea vomiting fever chills abdominal pain minimal ambulatory tolerating diet having bowel function. Drain output significantly decreased. Overall patient's clinical condition significantly improved. Okay for discharge planning from surgical standpoint. Drain needs to stay in place until minimal output and likely will be removed in the office. Is a report patient is planned for discharge today. Antibiotics written Augmentin and Flagyl as well as pain medication Tylenol 3. Clear instructions were given at the bedside with nursing staff present in regards to antibiotic dosages timing as well as as needed pain medication. I personally reviewed drain and drain care with the patient and instructions for drain and per report nursing has as well. Using cost consultant his care plan was clearly discussed in detail prior to discharge including medications drain care diet bowel function activities and restrictions. Patient instructed return if worsening condition fever drain issues. Otherwise follow-up was given in my office for 07/30/2020 at 10 AM for follow-up and drain removal. Business card including follow-up information was clearly written and given to patient. All questions were answered. Thank you for let me participate patient's care Objective Last 24 Hour Vital Signs Date Time Temp Pulse Resp B/P (MAP) Pulse Ox O2 Delivery O2 Flow Rate FiO2 07/23/20 12:00 97.8 64 20 118/80 (93) 97 07/23/20 09:00 Room Air 07/23/20 08:00 97.8 59 20 109/70 (83) 96 07/23/20 04:00 97.2 63 20 120/81 (94) 95 07/23/20 00:00 97.9 65 20 128/78 (95) 95 07/22/20 21:00 Room Air 07/22/20 20:00 97.9 61 20 138/87 (104) 97 07/22/20 16:00 98.3 60 20 113/67 (82) 97 I&O Intake and Output 07/22/20 07/23/20 19:00 07:00 Intake Total 1070 ml 120.0 ml Output Total 1590 ml 524 ml Balance -520 ml -404.0 ml Intake Oral 1060 ml IV Total 110.0 ml Other 10 ml 10 ml Output Urine Total 1550 ml 500 ml Drainage Total 40 ml Other 24 ml Dressing: dry Wound: clean Drains: other Cardiovascular: RSR Respiratory: clear Abdomen: soft, flat, non-tender, present bowel sounds, other - drain in place with dressings. drain functional , non-distended Extremities: no edema, no tenderness, no cyanosis Laboratory Tests Test 07/23/20 05:57 White Blood Count 9.4 K/UL (4.8-10.8) Red Blood Count 4.72 M/UL (4.70-6.10) Hemoglobin 14.1 G/DL (14.2-18.0) L Hematocrit 41.1 % (42.0-52.0) L Mean Corpuscular Volume 87 FL (80-99) Mean Corpuscular Hemoglobin 29.7 PG (27.0-31.0) Mean Corpuscular Hemoglobin Concent 34.2 G/DL (32.0-36.0) Red Cell Distribution Width 11.3 % (11.6-14.8) L Platelet Count 494 K/UL (150-450) H Mean Platelet Volume 6.5 FL (6.5-10.1) Neutrophils (%) (Auto) 66.8 % (45.0-75.0) Lymphocytes (%) (Auto) 20.2 % (20.0-45.0) Monocytes (%) (Auto) 12.0 % (1.0-10.0) H Eosinophils (%) (Auto) 0.2 % (0.0-3.0) Basophils (%) (Auto) 0.9 % (0.0-2.0) Sodium Level 137 MMOL/L (136-145) Potassium Level 4.0 MMOL/L (3.5-5.1) Chloride Level 101 MMOL/L (98-107) Carbon Dioxide Level 25 MMOL/L (21-32) Anion Gap 11 mmol/L (5-15) Blood Urea Nitrogen 9 mg/dL (7-18) Creatinine 0.9 MG/DL (0.55-1.30) Estimat Glomerular Filtration Rate > 60 mL/min (>60) Glucose Level 97 MG/DL (74-106) Calcium Level 9.5 MG/DL (8.5-10.1) Plan Problems: (1) Dehydration (2) Hyperbilirubinemia (3) Nasal fracture (4) Facial contusion (5) Acute perforated appendicitis Assessment & Plan: 44-year-old male acute perforated appendicitis no abscess. Some mild bubbles of free air likely from the perforation. Abdominal exam with right lower quadrant tenderness mild distention no peritonitis. Leukocytosis dehydration. Given above will initiate nonoperative medical management acute perforated appendicitis. If improving will continue with course. Otherwise will need to go to operating room for exploration. Long session had at the patient's bedside in regards to findings and care plan. Patient expressed understanding. N.p.o. IV fluids IV antibiotics trend labs we will follow with examination recommendations thank you for let me participate in patient's care improving with medical management npo iv fluids iv abx trend labs afebrile, HD stable comfortable pain improved but still present no n/v/f/c +flatus +bm wbc resolved labs improved start clear liquid diet trail cont abx as pain improves and clinically improves will plan for transition to oral abx for dc abd exam improved afebrile, HD stable but today states feels a bit worse and wbc 12k repeat CT a/p ordered radiologist yesterday did not feel comfortable with drainage guided of abscess. discussed with patient. new radiologist on tuesday. he is afebrile, HD stable, looks okay, pain resolved. does have a wbc given clinically stable recommend second opinion radiology tuesday. if unable will proceed with surgery tuesday which would be second to radiological drainage as morbidity greater with surgery given clinical situation plan repeat CT today possible drain discussed with radiology discussed with patient and family at his request if not possible for drain will plan surgery Was unable to obtain IR drainage of abscess yesterday. Fluid drainage since identified. Feeling better no nausea vomiting fever chills. Labs okay. Drain in place and checked by myself this morning. Continue diet as tolerated. Continue antibiotics. Transition to oral antibiotics for discharge. Will likely discharge with drain follow-up in the office for drain removal. improved labs okay exam benign no n/v//fc okay to d/c from surgical standpoint rx written clear f/u and instructions given thank you Celestine Joya Jul 23, 2020 13:32
--- NOTE | 2020-07-23 15:00 | NUR ---
NURSE NOTES: Prescription was faxed to [facility] and medications were delivered. Explained pt how to take meds (almond sorter present) and pt verbalized understanding. Nurse spoke to pt's niece over the phone and explain how to take meds as well.
--- NOTE | 2020-07-23 15:52 | NUR ---
NURSE NOTES: Pt in stable condition. Provided discharge instructions, follow up and medications (pension manager present). Pt verbalized understanding. Pt going home with Uresil drain per MD. All belonging were accounted for. IV and ID band removed. Pt was escorted by nurse to downstair and picked up by family member.
--- NOTE | 2020-07-24 13:10 | Discharge Summary ---
Discharge Summary Discharge Summary _ Date of admission: 07/11/2020 Date of discharge: 07/23/[address] Toth History of Present Illness and Brief Hospital Course Mr. Reyes is a 44-year-old male who presented to the ED for evaluation of worsening abdominal discomfort and distention associated with nausea and vomiting. He also reported increasing loose black tarry stool. Patient also had a recent head trauma to his forehead 2 days ago when he was accidentally struck by a metal object. Initial laboratory tests were normal except for elevated white blood count and bilirubin level. Liver function tests were normal. CT of abdomen/pelvis showed right lower abdominal free air as well as multiple areas of distended bowel with fluid which were concerning for perforated appendicitis. Patient was started on pain medication and IV antibiotics. Patient was admitted to the hospital for further management. Facial bone CT reviewed possible minuscule nasal bone fractures without significant displacement, and left frontal scalp and left periorbital hematoma. Head CT showed no acute intracranial abnormality. Patient was started on medical management for the acute appendicitis. A repeat abdomen/pelvis CT showed previously demonstrated acute appendicitis and new adjacent complex fluid collection containing fluid and air lucencies and surrounding inflammation. Given the free fluid, a drain was placed. Patient was continued on antibiotics. Patient was afebrile, hemodynamically stable, and leukocytosis resolved. Patient was instructed to leave the drain in place until minimal output and follow-up with Dr. Joya in his office for removal. Patient was given prescription for Augmentin and Flagyl as well as pain medication. Patient was also instructed to return to the ED if his condition worsens or if there is an issue with the drain. Patient has a follow-up appointment on 07/30/2020 at 10 AM. Consultants: Surgery Dr. Joya Hematology oncology Dr. Cochran Discharge Condition Improved and stable Discharge Activity As tolerated Discharge Diet Regular Final diagnoses Leukocytosis, likely related to appendicitis Thrombocytosis, likely reactive process Anemia of hemodilution Acute appendicitis with perforation, s/p drain Facial injury Nose fracture I have been assigned to dictate discharge summary for this account. I was not involved in the patient's management Farhat Johnson Jul 24, 2020 13:09
== END 2020-07-23 15:55 | disposition home or self-care (01) | DRG 248 ==
LOC: EMR 20:05 → 4E 22:25 → EDBEDREQ 22:46
PROC: 0D9J30Z Drainage of Appendix with Drainage Device, Percutaneous Approach (ICD-10-PCS; principal; 2020-07-21)
DX: K35.33 Acute appendicitis with perforation, localized peritonitis, and gangrene, with abscess (principal); S02.2XXA Fracture of nasal bones, initial encounter for closed fracture; S00.83XA Contusion of other part of head, initial encounter; W22.8XXA Striking against or struck by other objects, initial encounter; R00.0 Tachycardia, unspecified; E86.0 Dehydration; D47.3 Essential (hemorrhagic) thrombocythemia
CPT/HCPCS: 36415; 70450; 70486; 71045; 74018; 74177; 75989; 80048; 80053; 82150; 82248; 82270; 83690; 85007; 85025; 85610; 85651; 85730; 86140; 86850; 86900; 86901; 87045; 87075; 93005; 96361; 96365; 96375; 96376; 99285; J2405; J7030